=== PATIENT | female | born 1955 | race Caucasian/White ===

== ENCOUNTER 2018-02-17 13:45 | Emergency (ER) | payer BC ==
[~2018-02-17] VITALS: Ht 152.4 cm; Wt 61.4 kg
[2018-02-17 13:50] VITALS: TEMP 97
[2018-02-17 15:47] LABS: COLLECTION METHOD CLEAN CATCH
[2018-02-17 15:55] LABS: BASO # 0.1 (0.0-0.2); BASO % 0.9 % (0.0-2.0); EOS # 0.1 (0.0-0.7); EOS % 0.8 % (0-4.0); GRAN # 9.3 (1.4-6.5); GRAN % 80.9 % (42.2-75.2); HEMATOCRIT 46.3 % (37.0-47.0); HEMOGLOBIN 16.3 g/dl (12.5-16.0); LYMPH # 1.1 (1.2-3.4); LYMPH % 9.9 % (20.0-51.0); MEAN CELL VOLUME 92 fl (80.0-100.0); MEAN CORPUSCULAR HEMOGLOBIN 32 pg (27.0-31.0); MEAN CORPUSCULAR HGB CONC 35 g/dl (33.0-37.0); MEAN PLATELET VOLUME 9.6 fl (7.4-10.4); MONO # 0.8 (0.1-0.6); MONO % 6.9 % (1.7-9.3); PLATELET COUNT 278 K/mm3 (130-400); RED BLOOD COUNT 5.05 M/mm3 (4.10-5.30); REDCELL DISTRIBUTION WIDTH-CV 12.3 % (11.5-14.5)
[2018-02-17 15:57] LABS: PH 7 (5-8); SQUAMOUS EPITHELIAL 0-2 /hpf; URINE APPEARANCE Clear; URINE BACTERIA None Seen /hpf; URINE BILIRUBIN Negative (NEGATIVE); URINE BLOOD Negative (NEGATIVE); URINE COLOR Yellow; URINE GLUCOSE Negative (NEGATIVE); URINE KETONE Negative (NEGATIVE); URINE LEUKOCYTE ESTERASE Negative (NEGATIVE); URINE NITRATE Negative (NEGATIVE); URINE PROTEIN(semi-quant) 3+ (NEGATIVE); URINE UROBILINOGEN Negative (NEGATIVE)
[2018-02-17 16:07] LABS: ALANINE AMINOTRANSFERASE 39 U/L (9-52); ALBUMIN 3.2 gm/dL (3.5-5.0); ALKALINE PHOSPHATASE 112 U/L (50-136); ANION GAP 3 mmol/L (7-16); AST,SGOT 31 U/L (15-37); BILIRUBIN,TOTAL 0.4 mg/dL (0.0-1.0); BLOOD UREA NITROGEN 15 mg/dL (7-17); CARBON DIOXIDE 30 mmol/L (22-30); CHLORIDE 97 mmol/L (98-107); CREATININE, serum 0.77 mg/dL (0.52-1.25); GLUCOSE 120 mg/dL (74-106); LIPASE 107 U/L (23-300); POTASSIUM 4.2 mmol/L (3.4-5.0); SODIUM 130 mmol/L (137-145); TOTAL PROTEIN 6.3 gm/dL (6.4-8.2)
[2018-02-17 16:08] LABS: C-REACTIVE PROTEIN < 0.5 mg/dL (0.0-0.9)
[2018-02-17 16:18] LABS: TROPONIN-I < 0.012 ng/mL (0.000-0.034)
[2018-02-17] MEDS ORDERED: MOBIC15 MG PO (17:32)
[2018-02-17] MEDS ORDERED: COZAAR100 MG PO (17:33)
[2018-02-17] MEDS ORDERED: CYMBALTA 60MG60 MG PO (17:35)
[2018-02-17] MEDS ORDERED: MAXZIDE-25MG TA1 TAB PO (17:36)
[2018-02-17] MEDS ORDERED: LIPITOR 80MG80 MG PO (17:36)
[2018-02-17] MEDS ORDERED: ZOFRAN 4MG T4 MG/TAB PO (18:03)
[2018-02-17] MEDS ORDERED: PEPCID 20MG TAB20 MG PO (18:03)
[2018-02-17] MEDS ORDERED: NORCO 325 MG-51 TAB PO (18:11)
[2018-02-17 18:14] VITALS: BP 173/88; PULSE 82
== END 2018-02-17 18:31 | disposition home or self-care (01) ==
LOC: COL.ER 13:45
PROVIDERS: Emergency Medicine
DX: R10.12 Left upper quadrant pain (principal); R10.13 Epigastric pain; R19.7 Diarrhea, unspecified; R11.2 Nausea with vomiting, unspecified; I10 Essential (primary) hypertension; E78.5 Hyperlipidemia, unspecified; Z90.710 Acquired absence of both cervix and uterus; Z98.890 Other specified postprocedural states; F17.210 Nicotine dependence, cigarettes, uncomplicated
CPT/HCPCS: J2405; J3010; J7030; Q9967

== ENCOUNTER 2018-06-26 09:40 | Day surgery (SDC) | payer BC ==
[~2018-06-26] VITALS: Ht 152.4 cm; Wt 61.1 kg
[~2018-06-26 09:40] MED LIST: COZAAR100 MG PO; CYMBALTA 60MG60 MG PO; LIPITOR 80MG80 MG PO; MAXZIDE-25MG TA1 TAB PO; MOBIC15 MG PO; NORCO 325 MG-51 TAB PO; PEPCID 20MG TAB20 MG PO; ZOFRAN 4MG T4 MG/TAB PO
[2018-06-26 10:12] VITALS: BP 137/84; PULSE 77; TEMP 98.1
[2018-06-26] MEDS ORDERED: HCTZ 25MG TAB25 MG PO (10:12)
[2018-06-26 12:25] VITALS: BP 147/70; PULSE 80; TEMP 97.6
[2018-06-26 12:40] VITALS: BP 152/83; PULSE 77
[2018-06-26 12:55] VITALS: BP 160/84; PULSE 75
== END 2018-06-26 13:15 | disposition home or self-care (01) ==
LOC: SDCO 09:40
DX: R19.7 Diarrhea, unspecified (principal); R93.3 Abnormal findings on diagnostic imaging of other parts of digestive tract; K21.0 Gastro-esophageal reflux disease with esophagitis; F32.9 Major depressive disorder, single episode, unspecified; E78.00 Pure hypercholesterolemia, unspecified; R18.8 Other ascites; K81.9 Cholecystitis, unspecified; Z88.5 Allergy status to narcotic agent; Z90.710 Acquired absence of both cervix and uterus
CPT/HCPCS: J2704; J7030

== ENCOUNTER → 2018-07-16 | Outpatient (CLI) | payer BC ==
[~2018-07-16] VITALS: Ht 152.4 cm; Wt 67.7 kg
[~2018-07-16] MED LIST changes: +HCTZ 25MG TAB25 MG PO; +PRIL40 PO
[2018-07-16 11:59] VITALS: BP 180/80; PULSE 76
== END ==
LOC: COL.RAD 07-13 11:45
DX: R10.9 Unspecified abdominal pain (principal); R35.0 Frequency of micturition; R53.83 Other fatigue

== ENCOUNTER 2018-08-31 13:40 | Inpatient (IN) | payer BC ==
[~2018-08-31] VITALS: Ht 152.4 cm; Wt 69.2 kg
[2018-08-31 13:50] VITALS: BP 174/86; PULSE 96; TEMP 98.1
--- NOTE | 2018-08-31 14:18 | NUR ---
Pt arrives to medical unit, ambulates into rm 309 with steady gait, A&O x 4. Breath sounds with expiratory wheezes in upper lobes bilat, lower lung lobes clear but diminished. BS active x 4, abd distended but soft to palpation. POC reviewed with pt and pt's family. No further needs reported. Call light in reach.
[2018-08-31] MEDS ORDERED: LASIX 40MG TABL40 MG PO (14:29)
[2018-08-31] MEDS ORDERED: SYNTHROID0.075 MG/T PO (14:33)
[2018-08-31] MEDS ORDERED: LASIX 20MG TABL20 MG PO (14:34)
[2018-08-31] MEDS ORDERED: MICRO-K 10 EXT10 MEQ PO (14:34)
[2018-08-31] MEDS ORDERED: NORVASC 10MG10 MG PO (14:35)
[2018-08-31 16:25] LABS: BASO # 0.1 (0.0-0.2); BASO % 1.3 % (0.0-2.0); EOS % 0.4 % (0-4.0); GRAN # 5.7 (1.4-6.5); GRAN % 76.8 % (42.2-75.2); HEMOGLOBIN 12.7 g/dl (12.5-16.0); LYMPH # 0.7 (1.2-3.4); LYMPH % 9.7 % (20.0-51.0); MEAN CELL VOLUME 89 fl (80.0-100.0); MEAN CORPUSCULAR HEMOGLOBIN 30 pg (27.0-31.0); MEAN CORPUSCULAR HGB CONC 33 g/dl (33.0-37.0); MEAN PLATELET VOLUME 8.7 fl (7.4-10.4); MONO # 0.8 (0.1-0.6); MONO % 11.3 % (1.7-9.3); PLATELET COUNT 375 K/mm3 (130-400); RED BLOOD COUNT 4.25 M/mm3 (4.10-5.30); REDCELL DISTRIBUTION WIDTH-CV 13.7 % (11.5-14.5)
[2018-08-31 16:29] VITALS: BP 173/78; PULSE 89; TEMP 98.4
[2018-08-31 16:35] LABS: CALCIUM 8.3 mg/dL (8.4-10.2); CREATININE, serum 1.88 mg/dL (0.52-1.25); POTASSIUM 3.1 mmol/L (3.4-5.0)
--- NOTE | 2018-08-31 17:44 | NUR ---
[place] catheter insertion attempted by this nurse with 16 Fr catheter but meeting resistance on insertion. Pt reports needing to void, gets up to bathroom. Second nurse notified to attempt insertion.
[2018-08-31 19:17] VITALS: BP 154/69; PULSE 100; TEMP 99
--- NOTE | 2018-08-31 20:52 | NUR ---
Patient resting in bed, denies pain. Lasix drip currently infusing, indwelling walker catheter in place, diuresing beginning to occur. Assessment completed, VSS.
[2018-08-31 22:32] VITALS: BP 148/61; PULSE 95; TEMP 99
[2018-08-31 23:49] LABS: COLLECTION METHOD CLEAN CATCH
[2018-09-01] VITALS (7 sets, daily range): BP systolic 124–157; BP diastolic 61–79; PULSE 88–99; TEMP 97.9–100.2
[2018-09-01] LABS: AMORPHOUS CRYSTAL Present /uL; PH 5 (5-8); SQUAMOUS EPITHELIAL 0-2 /hpf; URINE APPEARANCE Clear; URINE BACTERIA Rare /hpf; URINE BILIRUBIN Negative (NEGATIVE); URINE BLOOD 1+ (NEGATIVE); URINE COLOR Straw; URINE GLUCOSE 1+ (NEGATIVE); URINE KETONE Negative (NEGATIVE); URINE LEUKOCYTE ESTERASE Negative (NEGATIVE); URINE NITRATE Negative (NEGATIVE); URINE PROTEIN(semi-quant) 2+ (NEGATIVE); URINE UROBILINOGEN Negative (NEGATIVE)
[2018-09-01 00:07] LABS: URINE PROTEIN:CREAT RATIO 16.2 (0.00-0.14)
--- NOTE | 2018-09-01 05:08 | NUR ---
Patient slept most of the night. On lasix drip, and walker is in. Diuresing, have about 140 mls/hr output. Denies pain. No other needs at thist michael.
[2018-09-01 06:40] LABS: BASO # 0.1 (0.0-0.2); BASO % 1.1 % (0.0-2.0); EOS % 0.7 % (0-4.0); GRAN # 3.3 (1.4-6.5); GRAN % 61.1 % (42.2-75.2); HEMOGLOBIN 11.3 g/dl (12.5-16.0); LYMPH % 18.9 % (20.0-51.0); MEAN CELL VOLUME 90 fl (80.0-100.0); MEAN CORPUSCULAR HEMOGLOBIN 30 pg (27.0-31.0); MEAN CORPUSCULAR HGB CONC 33 g/dl (33.0-37.0); MEAN PLATELET VOLUME 8.9 fl (7.4-10.4); MONO % 17.8 % (1.7-9.3); PLATELET COUNT 353 K/mm3 (130-400); RED BLOOD COUNT 3.76 M/mm3 (4.10-5.30); REDCELL DISTRIBUTION WIDTH-CV 13.7 % (11.5-14.5)
[2018-09-01 06:41] LABS: HEMATOCRIT 33.8 % (37.0-47.0)
[2018-09-01 06:55] LABS: CALCIUM 7.7 mg/dL (8.4-10.2); CREATININE, serum 1.87 mg/dL (0.52-1.25)
[2018-09-01 06:58] LABS: POTASSIUM 2.9 mmol/L (3.4-5.0)
--- NOTE | 2018-09-01 09:18 | NUR ---
Alert and oriented x 4 and able to make needs known. Denies having pain and discomfort. Able to ambualte to and from bathroom this morning with one assist. Patient had medium sized bowel movement. Continues on IV Lasix. 2+ edmea to BUE, and 3+ to BLE. Pedal pulses are present and equal bilaterally. Denies numbness, pain, and discomfort to BLE. Cap refill < 3 sec on finger and toes. BLE are without redness, warmth, and drainage. Indwelling walker catheter is patent, and draining clear yellow urine via dependent drainage. Sitting up in bed at this time watching TV. Voices no needs.
--- NOTE | 2018-09-01 10:34 | NUR ---
First visit from the school cleaner. No needs right now.
--- NOTE | 2018-09-01 18:37 | NUR ---
Patient educated on renal biopsy scheduled for tomorrow. Voices no concerns at this time. Educated on being NPO after midnight. Voices no needs at this time.
[2018-09-01 20:32] LABS: CALCIUM 7.5 mg/dL (8.4-10.2); CREATININE, serum 1.81 mg/dL (0.52-1.25); POTASSIUM 3.1 mmol/L (3.4-5.0)
--- NOTE | 2018-09-01 21:05 | NUR ---
Patient resting in bed. Per GLASS CUT OFF SUPERVISOR patient had temp of 100.2. This nurse went into room 45 minutes later, rechecked temperature and it was at 98.2. Denies pain. Assessment completed. Lasix drip currently infusing, walker catheter in. Strict I/O's. Evening medications administered. No further needs at this time.
[2018-09-02] VITALS (15 sets, daily range): BP systolic 125–174; BP diastolic 69–100; PULSE 82–94; TEMP 97.4–98.4
--- NOTE | 2018-09-02 05:30 | NUR ---
Patient slept most of the night, no complaints of pain, lasix gtt still infusing, walker catheter in place. VSS.
--- NOTE | 2018-09-02 06:12 | NUR ---
Average UOP 100-150 mls/hr.
[2018-09-02 07:55] LABS: BASO # 0.1 (0.0-0.2); EOS % 0.6 % (0-4.0); GRAN % 58.3 % (42.2-75.2); LYMPH # 1.2 (1.2-3.4); LYMPH % 22.6 % (20.0-51.0); MEAN CELL VOLUME 89 fl (80.0-100.0); MEAN CORPUSCULAR HEMOGLOBIN 30 pg (27.0-31.0); MEAN CORPUSCULAR HGB CONC 34 g/dl (33.0-37.0); MEAN PLATELET VOLUME 9.2 fl (7.4-10.4); MONO # 0.9 (0.1-0.6); MONO % 17.1 % (1.7-9.3); PLATELET COUNT 318 K/mm3 (130-400); RED BLOOD COUNT 3.66 M/mm3 (4.10-5.30); REDCELL DISTRIBUTION WIDTH-CV 13.7 % (11.5-14.5)
[2018-09-02 07:57] LABS: HEMATOCRIT 32.4 % (37.0-47.0)
[2018-09-02 08:07] LABS: CALCIUM 7.2 mg/dL (8.4-10.2); CREATININE, serum 1.83 mg/dL (0.52-1.25)
--- NOTE | 2018-09-02 09:22 | NUR ---
Alert and oriented and able to make needs known. Denies having pain and discomfort. Reviewed renal biopsy with patient. Voices understanding of procedure and signed consent. Voices no questions or concerns at this time. Given medications with sips of water this morning, otherwise remains NPO for procedure. Indwelling walker catheter remains patent, and draining clear yellow urine via dependent drainage. Has an occaional moist cough. Unable to observe any sputum. Lungs remain clear at this time. Denies having shortness of breath. Called radiology to confirm procedure time-set for 0950 at this time.
--- NOTE | 2018-09-02 10:10 | NUR ---
Pt wheeled down to CT for biopsy at this time.
--- NOTE | 2018-09-02 10:56 | NUR ---
Patient arrived at 1040 from radiology. Bandaid to right flank is clean, dry, and intact. Denies having pain and discomfort. Site is without redness, warmth, and swelling.
--- NOTE | 2018-09-02 11:01 | NUR ---
PT IS DOING WELL. HOLDING STILL AND FOLLOWING DIRECTIONS.
--- NOTE | 2018-09-02 11:01 | NUR ---
PT ON THE TABLE. MONITORING EQUIPMENT IN PLACE. INT PATENT AND FLUSHED WITH 10 CC NS.
--- NOTE | 2018-09-02 11:02 | NUR ---
PT IS DOING WELL. NO PAIN.
--- NOTE | 2018-09-02 11:03 | NUR ---
PROCEDURE COMPLETED. SPSECIMENS WERE GOOD. PT CLEANED AND EQUIPMENT REMOVED. PT ASSISTED TO TRANSFER TO WHEELCHAIR. PT TAKEN UPSTAIRS TO ROOM BY TECH. NURSE CALLED A FEW MINUTES LATER AND REPORT WAS GIVEN.
--- NOTE | 2018-09-02 13:15 | NUR ---
Continues to be on bedrest. Urine specimens being collected every two hours for Dr. Vieira at this time, via indwelling walker catheter. Denies having pain and discomfort. Bandaid to right flank area continues to be clean, dry, and intact.
[2018-09-02 17:59] LABS: CALCIUM 7.6 mg/dL (8.4-10.2); CREATININE, serum 1.83 mg/dL (0.52-1.25); MAGNESIUM 1.8 mg/dL (1.6-2.3); POTASSIUM 3.7 mmol/L (3.4-5.0)
--- NOTE | 2018-09-02 18:17 | NUR ---
Denies having pain and discomfort. Continueing to monitor urine output, and to collect samples per orders about every 2-[address] Vieira to look at when he comes.
--- NOTE | 2018-09-02 19:40 | NUR ---
Patient resting in bed with family at bedside. Assessment completed, denies pain, VSS. Strict I/O"s recorded, racking urine sample in bathroom until Dr. Alvarado sees patient.
[2018-09-03 00:19] VITALS: BP 141/69; PULSE 87; TEMP 98.3
[2018-09-03 04:09] VITALS: BP 141/70; PULSE 83; TEMP 98.1
--- NOTE | 2018-09-03 05:19 | NUR ---
Patient slept most of the night, VSS. Monitoring urine output from walker, sample taken every 2-3 hours and being stored in bathroom. No complaints of pain. Lasix gtt at 10 mls/hr.
[2018-09-03 06:16] LABS: GRAN # 4.4 (1.4-6.5); GRAN % 80.3 % (42.2-75.2); HEMOGLOBIN 11.5 g/dl (12.5-16.0); LYMPH # 0.9 (1.2-3.4); LYMPH % 15.6 % (20.0-51.0); MEAN CELL VOLUME 88 fl (80.0-100.0); MEAN CORPUSCULAR HEMOGLOBIN 30 pg (27.0-31.0); MEAN CORPUSCULAR HGB CONC 35 g/dl (33.0-37.0); MEAN PLATELET VOLUME 9.2 fl (7.4-10.4); MONO # 0.2 (0.1-0.6); MONO % 3.4 % (1.7-9.3); PLATELET COUNT 329 K/mm3 (130-400); RED BLOOD COUNT 3.79 M/mm3 (4.10-5.30); REDCELL DISTRIBUTION WIDTH-CV 13.2 % (11.5-14.5)
[2018-09-03 06:20] LABS: HEMATOCRIT 33.2 % (37.0-47.0)
[2018-09-03 06:30] LABS: CALCIUM 7.2 mg/dL (8.4-10.2); CREATININE, serum 2.06 mg/dL (0.52-1.25); POTASSIUM 3.8 mmol/L (3.4-5.0)
[2018-09-03 06:56] LABS: TSH w REFLEX 4.39 uIU/mL (0.465-4.680)
[2018-09-03 07:25] VITALS: BP 149/75; PULSE 88; TEMP 98
--- NOTE | 2018-09-03 09:56 | NUR ---
Patient assessed. 1+ edema to BUE and BLE. Weight was 166 this morning, down from 170 yesterday. Continues on IV Lasix per orders. Denies having pain and discomfort. Urine continues to be collected about every 2-3 hours.
[2018-09-03 12:36] VITALS: BP 154/73; PULSE 91; TEMP 98
--- NOTE | 2018-09-03 14:24 | NUR ---
Called and spoke wiht Dr. Che regarding patient's low urine output, even after initiating new orders from earlier today. Urine output has been 125ml since 0800. Indwelling walker cathter continues to drain clear, yellow urine, with two small blood clots noted. MD requested bladder scan to be performed to ensure catheter is draining properly. No new orders at this time, continue with current medication regimen. Bladder scan completed, with no significant findings.
--- NOTE | 2018-09-03 15:27 | NUR ---
SW and SW student met with patient to discuss discharge planning. Patient lives in [place] with her River and is independent in her adls. Patients PCP is Juana Moreno and she obtains her medications at [facility] in [place]. Patient does not know if she has a DPOA but reports she will ask her . Patient will dc home with her and no unmet discharge needs.
[2018-09-03 16:32] VITALS: BP 102/57; PULSE 58; TEMP 97.8
[2018-09-03 19:45] VITALS: BP 148/77; PULSE 87; TEMP 97.8
--- NOTE | 2018-09-03 22:00 | NUR ---
Completed assessment and medication administration with PT; PT tolerated medication well; Fluid restriction 2L per day; IV moved to Rt Hand d/t leaking of fluid; PT continues to be FSBS ACHS with SS Novolog; Continues to be SBA with walker catheter in place draining well; Renal BX results pending; PT continues to have generalized edema with Lasik therapy ordered. PT denied further complaints at time of exit; Call light placed within reach; Will continue to montior. CDA
[2018-09-04] VITALS: BP 145/73; PULSE 76
[2018-09-04 06:13] LABS: BASO % 0.1 % (0.0-2.0); GRAN # 15.3 (1.4-6.5); GRAN % 88.6 % (42.2-75.2); HEMOGLOBIN 11.4 g/dl (12.5-16.0); LYMPH # 1.1 (1.2-3.4); LYMPH % 6.2 % (20.0-51.0); MEAN CELL VOLUME 88 fl (80.0-100.0); MEAN CORPUSCULAR HEMOGLOBIN 30 pg (27.0-31.0); MEAN CORPUSCULAR HGB CONC 34 g/dl (33.0-37.0); MEAN PLATELET VOLUME 9.1 fl (7.4-10.4); MONO # 0.8 (0.1-0.6); MONO % 4.5 % (1.7-9.3); PLATELET COUNT 356 K/mm3 (130-400); RED BLOOD COUNT 3.83 M/mm3 (4.10-5.30); REDCELL DISTRIBUTION WIDTH-CV 13.2 % (11.5-14.5)
[2018-09-04 06:17] LABS: HEMATOCRIT 33.7 % (37.0-47.0)
[2018-09-04 06:24] LABS: CALCIUM 7.3 mg/dL (8.4-10.2); CREATININE, serum 2.22 mg/dL (0.52-1.25)
--- NOTE | 2018-09-04 06:55 | NUR ---
PT tolerated medications and treatments well. New IV placed in RT hand by house nurse; No other significant changes during overnight shift. Call light placed within reach of PT; No further needs at time of exit; Report given to ANITRA Huggins. CDA
[2018-09-04 07:46] VITALS: BP 164/80; PULSE 90; TEMP 97.8
--- NOTE | 2018-09-04 08:45 | NUR ---
Patient is alert and oriented, sitting up in the chair. IV flushes well, lasix running per orders. Fluid restriction followed. Catheter draining adequately, closely monitoring output. Patient reports SOB with ambulation, VSS. Call light within reach and will continue to monitor.
[2018-09-04 12:10] VITALS: BP 150/71; PULSE 84; TEMP 97.6
[2018-09-04 16:20] VITALS: BP 151/80; PULSE 87; TEMP 98
--- NOTE | 2018-09-04 18:23 | NUR ---
Patient has been up in the chair and laying in bed throughout the day. Lasix drip continues to run per orders. Bilateral lower extremity swelling and right arm extremity swelling observed. Patient intake 1000ml throughout shift. Output is adequate. VSS. Call light within reach and will give report to customer data technician RN.
[2018-09-04 19:05] VITALS: BP 154/75; PULSE 86; TEMP 98.1
[2018-09-04 23:37] VITALS: BP 149/72; PULSE 83; TEMP 98.5
[2018-09-04 23:52] LABS: C-ANCA 46 U/mL (0-99)
[2018-09-05 03:26] VITALS: BP 129/70; PULSE 75; TEMP 98.1
[2018-09-05 08:00] VITALS: BP 139/71; PULSE 74; TEMP 97.7
--- NOTE | 2018-09-05 08:08 | NUR ---
PT HAD UNEVENTFUL NOC. PLEASENT AND COOPERATIVE WITH CARES. NO C/O PAIN OR N/V/D. NO ISSUES OR CONERNS VOICED
[2018-09-05 08:22] LABS: BASO % 0.1 % (0.0-2.0); EOS % 0.2 % (0-4.0); GRAN # 8.9 (1.4-6.5); GRAN % 69.3 % (42.2-75.2); HEMATOCRIT 37.4 % (37.0-47.0); HEMOGLOBIN 12.6 g/dl (12.5-16.0); LYMPH # 2.5 (1.2-3.4); LYMPH % 19.3 % (20.0-51.0); MEAN CELL VOLUME 89 fl (80.0-100.0); MEAN CORPUSCULAR HEMOGLOBIN 30 pg (27.0-31.0); MEAN CORPUSCULAR HGB CONC 34 g/dl (33.0-37.0); MEAN PLATELET VOLUME 9.4 fl (7.4-10.4); MONO # 1.4 (0.1-0.6); MONO % 10.6 % (1.7-9.3); PLATELET COUNT 400 K/mm3 (130-400); REDCELL DISTRIBUTION WIDTH-CV 13.8 % (11.5-14.5)
[2018-09-05 08:35] LABS: CALCIUM 7.6 mg/dL (8.4-10.2); CREATININE, serum 2.23 mg/dL (0.52-1.25); POTASSIUM 4.1 mmol/L (3.4-5.0)
--- NOTE | 2018-09-05 09:30 | NUR ---
PATIENT ASSESSMENT COMPLETED. SHE DENIES ANY NEEDS. BREAKFAST WAS PROVIDED AND HAS ARRIVED AT BEDSIDE
[2018-09-05 12:01] VITALS: BP 149/75; PULSE 77; TEMP 97.7
--- NOTE | 2018-09-05 14:00 | NUR ---
UA COLLECTED. PATIENT IS UP TO THE RESTROOM WITHOUT DIFFICULTY OR COMPLAINTS. NO OTHER NEEDS EXPRESSED
[2018-09-05 15:59] LABS: URINE PROTEIN:CREAT RATIO 12.55 (0.00-0.14)
[2018-09-05 16:28] VITALS: BP 143/82; PULSE 94; TEMP 98.2
--- NOTE | 2018-09-05 18:05 | NUR ---
PATIENT UP IN BED VISITING WITH VISITORS. DENIES NEEDS
[2018-09-05 19:19] VITALS: BP 147/84; PULSE 86; TEMP 97.4
[2018-09-05 23:54] VITALS: BP 123/70; PULSE 82; TEMP 97.9
[2018-09-06 03:59] VITALS: BP 148/74; PULSE 72
--- NOTE | 2018-09-06 06:04 | NUR ---
PT tolerated medications and IV Lasix well throughout the night; Output has increased and weight is down from yesterday; Increase in fluid volume output reported to Dr. Vieira per order; TORB per Dariel - "Cancel phone notification order, there is no need, no changes." PT tolerating fluid loss well; Denies acute changes to balance at time of assessment; PT denies further needs at time of exit; Call light placed within reach; Pending report for dayshift. CDA
[2018-09-06 08:02] VITALS: BP 177/85; PULSE 76; TEMP 98.1
--- NOTE | 2018-09-06 08:30 | NUR ---
PATIENT ASSESSMENT COMPLETED. SHE FEELS LIKE SHE IS A LITTLE LESS SWOLLEN AROUND THE TORSO. LEGS ARE LESS SWOLLEN THAN YESTERDAY. SHE DENIES ANY PAIN OR NEEDS AT THIS TIME. BREAKFAST HAS BEEN ORDERED
[2018-09-06 08:56] LABS: BASO % 0.1 % (0.0-2.0); EOS % 0.4 % (0-4.0); GRAN # 6.9 (1.4-6.5); GRAN % 62.9 % (42.2-75.2); LYMPH # 2.8 (1.2-3.4); LYMPH % 25.4 % (20.0-51.0); MEAN CELL VOLUME 89 fl (80.0-100.0); MEAN CORPUSCULAR HEMOGLOBIN 29 pg (27.0-31.0); MEAN CORPUSCULAR HGB CONC 33 g/dl (33.0-37.0); MEAN PLATELET VOLUME 9.4 fl (7.4-10.4); MONO # 1.2 (0.1-0.6); MONO % 10.7 % (1.7-9.3); PLATELET COUNT 361 K/mm3 (130-400); RED BLOOD COUNT 4.08 M/mm3 (4.10-5.30); REDCELL DISTRIBUTION WIDTH-CV 13.6 % (11.5-14.5)
[2018-09-06 08:57] LABS: HEMATOCRIT 36.1 % (37.0-47.0)
[2018-09-06 09:03] LABS: CALCIUM 7.8 mg/dL (8.4-10.2); CREATININE, serum 2.27 mg/dL (0.52-1.25); POTASSIUM 3.9 mmol/L (3.4-5.0)
[2018-09-06 11:18] VITALS: BP 153/74; PULSE 80; TEMP 98.2
[2018-09-06] MEDS ORDERED: COZAAR 50MG50 MG/TAB PO (12:07)
[2018-09-06] MEDS ORDERED: PREDNISONE20 MG PO (12:09)
[2018-09-06] MEDS ORDERED: MICRO-K 10 EXT10 MEQ PO (12:10)
[2018-09-06] MEDS ORDERED: MAG-OX 400400 MG/TAB PO (12:11)
[2018-09-06] MEDS ORDERED: COUMADIN 1MG1 MG/TAB PO (12:16)
--- NOTE | 2018-09-06 13:15 | NUR ---
PATIENT DISCHARGE INSTRUCTIONS REVIEWED WITH PATIENT AND . THEY DECLINE FURTHER QUESTIONS
--- NOTE | 2018-09-06 13:25 | NUR ---
PATIENT DISCHARGED TO HOME WITH BELONGINGS. SHE DENIES ANY OTHER BELONGINGS THAT ARE LOCKED UP. NEW SCRIPTS HAVE BEEN SENT TO [facility].
== END 2018-09-06 13:30 | disposition home or self-care (01) | DRG 700 ==
LOC: MEDICAL 13:40
PROVIDERS: Internal Medicine Nephrology; ADMIT Internal Medicine
PROC: 0TB03ZX Excision of Right Kidney, Percutaneous Approach, Diagnostic (ICD-10-PCS; principal; 2018-09-02)
DX: N04.1 Nephrotic syndrome with focal and segmental glomerular lesions (principal); N17.0 Acute kidney failure with tubular necrosis; I12.9 Hypertensive chronic kidney disease with stage 1 through stage 4 chronic kidney disease, or unspecified chronic kidney disease; N18.3 Chronic kidney disease, stage 3 (moderate); F17.210 Nicotine dependence, cigarettes, uncomplicated; E66.9 Obesity, unspecified; Z68.33 Body mass index [BMI] 33.0-33.9, adult; E03.9 Hypothyroidism, unspecified; E87.6 Hypokalemia; R80.8 Other proteinuria
CPT/HCPCS: J1644; J1815; J1940; J2930; J7060; J7512

== ENCOUNTER 2019-02-11 11:21 | Emergency (ER) | payer BC ==
[~2019-02-11] VITALS: Ht 152.4 cm; Wt 54.5 kg
[~2019-02-11 11:21] MED LIST changes: +COUMADIN 1MG1 MG/TAB PO; +COZAAR 50MG50 MG/TAB PO; +LASIX 20MG TABL20 MG PO; +LASIX 40MG TABL40 MG PO; +MAG-OX 400400 MG/TAB PO; +MICRO-K 10 EXT10 MEQ PO; +NORVASC 10MG10 MG PO; +PREDNISONE20 MG PO; +SYNTHROID0.075 MG/T PO
[2019-02-11 11:27] VITALS: TEMP 96.5
[2019-02-11 11:43] LABS: COLLECTION METHOD CLEAN CATCH
[2019-02-11 11:53] LABS: MUCOUS Present /lpf; PH 6 (5-8); SQUAMOUS EPITHELIAL 0-2 /hpf; URINE APPEARANCE Clear; URINE BACTERIA Rare /hpf; URINE BILIRUBIN Negative (NEGATIVE); URINE BLOOD Negative (NEGATIVE); URINE COLOR Yellow; URINE GLUCOSE 1+ (NEGATIVE); URINE KETONE Negative (NEGATIVE); URINE LEUKOCYTE ESTERASE Negative (NEGATIVE); URINE NITRATE Negative (NEGATIVE); URINE PROTEIN(semi-quant) 3+ (NEGATIVE); URINE UROBILINOGEN Negative (NEGATIVE)
[2019-02-11 12:09] LABS: BASO # 0.1 (0.0-0.2); BASO % 0.4 % (0.0-2.0); EOS % 0.1 % (0-4.0); GRAN # 12.5 (1.4-6.5); GRAN % 80.2 % (42.2-75.2); LYMPH # 1.6 (1.2-3.4); LYMPH % 10.5 % (20.0-51.0); MEAN CELL VOLUME 93 fl (80.0-100.0); MEAN CORPUSCULAR HEMOGLOBIN 31 pg (27.0-31.0); MEAN CORPUSCULAR HGB CONC 33 g/dl (33.0-37.0); MEAN PLATELET VOLUME 9.7 fl (7.4-10.4); MONO # 1.1 (0.1-0.6); MONO % 7.1 % (1.7-9.3); PLATELET COUNT 296 K/mm3 (130-400); RED BLOOD COUNT 4.84 M/mm3 (4.10-5.30); REDCELL DISTRIBUTION WIDTH-CV 14.6 % (11.5-14.5)
[2019-02-11 12:14] LABS: ALBUMIN 3.1 gm/dL (3.5-5.0); BILIRUBIN,TOTAL 0.6 mg/dL (0.0-1.0); CALCIUM 8.7 mg/dL (8.4-10.2); CREATININE, serum 1.11 (0.52-1.25); POTASSIUM 3.3 mmol/L (3.4-5.0); TOTAL PROTEIN 6.2 gm/dL (6.4-8.2)
[2019-02-11] MEDS ORDERED: AMOXICILLIN 8751 TAB PO (14:10)
[2019-02-11 14:30] VITALS: BP 162/93; PULSE 85
== END 2019-02-11 14:30 | disposition home or self-care (01) ==
LOC: COL.ER 11:21
PROVIDERS: Emergency Medicine
DX: R10.32 Left lower quadrant pain (principal); R10.12 Left upper quadrant pain; I10 Essential (primary) hypertension; F17.210 Nicotine dependence, cigarettes, uncomplicated; Z90.49 Acquired absence of other specified parts of digestive tract; Z90.710 Acquired absence of both cervix and uterus; Z88.5 Allergy status to narcotic agent; Z79.01 Long term (current) use of anticoagulants
CPT/HCPCS: J1170; J2405; J7030; Q9967

== ENCOUNTER → 2019-06-16 | Outpatient (CLI) | payer BC ==
[~2019-06-16] MED LIST changes: +AMOXICILLIN 8751 TAB PO
== END ==
LOC: COL.RAD 06-15 11:00
DX: D47.2 Monoclonal gammopathy (principal); M47.813 Spondylosis without myelopathy or radiculopathy, cervicothoracic region; M47.815 Spondylosis without myelopathy or radiculopathy, thoracolumbar region; M19.011 Primary osteoarthritis, right shoulder; M16.0 Bilateral primary osteoarthritis of hip

== ENCOUNTER 2019-09-22 15:53 | Inpatient (IN) | payer BC ==
[~2019-09-22] VITALS: Ht 152.4 cm; Wt 59.3 kg
[2019-09-23] VITALS (91 sets, daily range): BP systolic 122–145; BP diastolic 48–85; PULSE 55–87; TEMP 97.7–97.8; O2SAT 85–97
[2019-09-23 09:35] LABS: BASO # 0.1 (0.0-0.2); BASO % 0.7 % (0.0-2.0); EOS # 0.2 (0.0-0.7); EOS % 1.6 % (0-4.0); GRAN # 8.9 (1.4-6.5); GRAN % 68.7 % (42.2-75.2); HEMATOCRIT 37.8 % (37.0-47.0); HEMOGLOBIN 12.1 g/dl (12.5-16.0); LYMPH # 2.3 (1.2-3.4); LYMPH % 17.6 % (20.0-51.0); MEAN CELL VOLUME 89 fl (80.0-100.0); MEAN CORPUSCULAR HEMOGLOBIN 29 pg (27.0-31.0); MEAN CORPUSCULAR HGB CONC 32 g/dl (33.0-37.0); MEAN PLATELET VOLUME 10.1 fl (7.4-10.4); MONO # 1.4 (0.1-0.6); MONO % 10.6 % (1.7-9.3); PLATELET COUNT 341 K/mm3 (130-400); RED BLOOD COUNT 4.24 M/mm3 (4.10-5.30); REDCELL DISTRIBUTION WIDTH-CV 14.6 % (11.5-14.5)
[2019-09-23 09:40] LABS: INR 0.8 (0.8-3.0); PROTHROMBIN TIME 9.6 SECONDS (9.7-12.8)
[2019-09-23 09:43] LABS: PARTIAL THROMBOPLASTIN TIME 29.6 SECONDS (26.0-37.0)
[2019-09-23 09:53] LABS: ALBUMIN 3.3 gm/dL (3.5-5.0); BILIRUBIN,TOTAL 0.3 mg/dL (0.0-1.0); CALCIUM 8.6 mg/dL (8.4-10.2); CREATININE, serum 3.41 (0.52-1.25); MAGNESIUM 2.8 mg/dL (1.6-2.3); PHOSPHOROUS 6.3 mg/dL (2.5-4.5); POTASSIUM 3.2 mmol/L (3.4-5.0); TOTAL PROTEIN 6.2 gm/dL (6.4-8.2)
--- NOTE | 2019-09-23 09:56 | NUR ---
ANODIZER student met with the patient and the patient's , River to complete initial intake. The patient lives in [place] with River. The patient denies DME usage and reports indepenence with ADLs. The patient's PCP is Dr. Ortiz and patient receives medications from [facility] in [place] with no difficulties. The patient does not have advanced directives in the EMR. The patient plans to return home at discharge with River. There are no additional needs at this time.
[2019-09-23] MEDS ORDERED: PREDNISONE 5MG5 MG PO (10:24)
[2019-09-23] MEDS ORDERED: PROGRAF 1MG1 MG PO (10:26)
[2019-09-23] MEDS ORDERED: ASPI325T6 PO (10:49)
[2019-09-23] MEDS ORDERED: ZAROXOLYN 2.52.5 MG PO (10:51)
[2019-09-23] MEDS ORDERED: COZAAR100 MG PO (11:00)
[2019-09-23] MEDS ORDERED: KLOR-CON M1010 MEQ PO (11:02)
[2019-09-23 11:42] LABS: CREATININE, serum 3.22 (0.52-1.25); FRACTIONAL EXCRETION OF NA+ 8.3 %
--- NOTE | 2019-09-23 21:00 | NUR ---
Assessment complete; VS stable. Denies any concerns at this time.
[2019-09-23 22:34] LABS: COLLECTION METHOD CLEAN CATCH
[2019-09-23 22:52] LABS: MUCOUS Present /lpf; PH 6 (5-8); SQUAMOUS EPITHELIAL None Seen /hpf; URINE APPEARANCE Clear; URINE BACTERIA None Seen /hpf; URINE BILIRUBIN Negative (NEGATIVE); URINE BLOOD Negative (NEGATIVE); URINE COLOR Straw; URINE GLUCOSE Negative (NEGATIVE); URINE KETONE Negative (NEGATIVE); URINE LEUKOCYTE ESTERASE Negative (NEGATIVE); URINE NITRATE Negative (NEGATIVE); URINE PROTEIN(semi-quant) 2+ (NEGATIVE); URINE UROBILINOGEN Negative (NEGATIVE); URINE WBC 0-2 /hpf
[2019-09-24] VITALS (489 sets, daily range): BP systolic 135–159; BP diastolic 74–92; PULSE 81–87; TEMP 98–99; O2SAT 87–99
--- NOTE | 2019-09-24 01:00 | NUR ---
Called to patient room to collect urine sample for 24 hr collection. No other concerns at this time. Call light within reach.
[2019-09-24 06:59] LABS: BASO # 0.1 (0.0-0.2); BASO % 0.6 % (0.0-2.0); EOS # 0.2 (0.0-0.7); EOS % 2.2 % (0-4.0); GRAN # 6.4 (1.4-6.5); GRAN % 64.6 % (42.2-75.2); LYMPH # 2.2 (1.2-3.4); LYMPH % 21.9 % (20.0-51.0); MEAN CELL VOLUME 89 fl (80.0-100.0); MEAN CORPUSCULAR HEMOGLOBIN 29 pg (27.0-31.0); MEAN CORPUSCULAR HGB CONC 33 g/dl (33.0-37.0); MEAN PLATELET VOLUME 9.9 fl (7.4-10.4); MONO % 10.1 % (1.7-9.3); PLATELET COUNT 327 K/mm3 (130-400); RED BLOOD COUNT 3.78 M/mm3 (4.10-5.30); REDCELL DISTRIBUTION WIDTH-CV 14.7 % (11.5-14.5)
[2019-09-24 07:01] LABS: HEMATOCRIT 33.5 % (37.0-47.0)
[2019-09-24 07:12] LABS: ALBUMIN 2.6 gm/dL (3.5-5.0); CALCIUM 7.7 mg/dL (8.4-10.2); CREATININE, serum 2.78 (0.52-1.25); PHOSPHOROUS 5.4 mg/dL (2.5-4.5); POTASSIUM 3.7 mmol/L (3.4-5.0)
--- NOTE | 2019-09-24 20:00 | NUR ---
Patient awake and oriented x4, she is resting in bed watching TV. No complaints of pain or any signs of distress. Vitals are WNL. Assessment complete with Lungs clear in upper lobes and diminished in bases. HR and rhythm regular with normal S1 and S2 heard. Bowel sounds active x4. Patient's peripheral pulses are palpable with +1 edema to the lower extremities and hands are also edematous. BUE have multiple briuses, no other skin issues noted. Patient has no further needs at this time. Will continue to monitor. Call light within reach.
[2019-09-24 20:36] LABS: CREATININE, serum 2.65 (0.52-1.25)
[2019-09-24 20:49] LABS: URINE CREATININE CLEARANCE 38.1 mL/min (88-128); URINE TOTAL VOLUME 2200 mL
[2019-09-25] VITALS: BP 142/79; PULSE 78; TEMP 98.5
[2019-09-25 03:58] VITALS: O2SAT 93
[2019-09-25 04:00] VITALS: BP 148/91; PULSE 82; TEMP 98.5
[2019-09-25 05:49] LABS: BASO # 0.1 (0.0-0.2); BASO % 0.6 % (0.0-2.0); EOS # 0.2 (0.0-0.7); EOS % 2.3 % (0-4.0); GRAN # 6.1 (1.4-6.5); GRAN % 63.1 % (42.2-75.2); HEMOGLOBIN 10.9 g/dl (12.5-16.0); LYMPH # 2.2 (1.2-3.4); LYMPH % 23.2 % (20.0-51.0); MEAN CELL VOLUME 89 fl (80.0-100.0); MEAN CORPUSCULAR HEMOGLOBIN 29 pg (27.0-31.0); MEAN CORPUSCULAR HGB CONC 32 g/dl (33.0-37.0); MEAN PLATELET VOLUME 9.6 fl (7.4-10.4); MONO % 10.2 % (1.7-9.3); PLATELET COUNT 290 K/mm3 (130-400); RED BLOOD COUNT 3.76 M/mm3 (4.10-5.30); REDCELL DISTRIBUTION WIDTH-CV 14.4 % (11.5-14.5)
[2019-09-25 05:51] LABS: HEMATOCRIT 33.6 % (37.0-47.0)
[2019-09-25 05:59] LABS: ALBUMIN 2.6 gm/dL (3.5-5.0); CALCIUM 8.1 mg/dL (8.4-10.2); CREATININE, serum 2.58 (0.52-1.25); PHOSPHOROUS 5.3 mg/dL (2.5-4.5); POTASSIUM 3.7 mmol/L (3.4-5.0)
--- NOTE | 2019-09-25 07:10 | NUR ---
Bedside report given to ANITAR Bernal
[2019-09-25 08:57] VITALS: BP 157/90; PULSE 80; TEMP 98.6
[2019-09-25 08:59] VITALS: O2SAT 97
[2019-09-25] MEDS ORDERED: LASIX 20MG TABL20 MG PO (10:19)
[2019-09-25] MEDS ORDERED: PRIL40 PO (10:22)
[2019-09-25] MEDS ORDERED: NORVASC 5MG5 MG/TAB PO (10:26)
[2019-09-25] MEDS ORDERED: COUMADIN 2MG2 MG/TAB PO (10:33)
[2019-09-25] MEDS ORDERED: FOSAMAX 35MG35 MG PO (10:35)
[2019-09-25] MEDS ORDERED: PREDNISONE20 MG PO (10:40)
[2019-09-25] MEDS ORDERED: PROGRAF 1MG1 MG PO (10:45)
== END 2019-09-25 11:59 | disposition home or self-care (01) | DRG 684 ==
LOC: ICU 09-23 08:09 → IMCU 09-23 15:50 → MEDICAL 09-23 16:50 → ICU 09-25 11:59
PROVIDERS: ADMIT Internal Medicine Nephrology
DX: N17.9 Acute kidney failure, unspecified (principal); E66.9 Obesity, unspecified; N18.3 Chronic kidney disease, stage 3 (moderate); I12.9 Hypertensive chronic kidney disease with stage 1 through stage 4 chronic kidney disease, or unspecified chronic kidney disease; K21.9 Gastro-esophageal reflux disease without esophagitis; R73.9 Hyperglycemia, unspecified; T50.2X5A Adverse effect of carbonic-anhydrase inhibitors, benzothiadiazides and other diuretics, initial encounter; E83.42 Hypomagnesemia; E78.5 Hyperlipidemia, unspecified; F17.210 Nicotine dependence, cigarettes, uncomplicated; Z79.82 Long term (current) use of aspirin; Z79.52 Long term (current) use of systemic steroids; Z68.25 Body mass index [BMI] 25.0-25.9, adult; Z90.710 Acquired absence of both cervix and uterus; Z88.5 Allergy status to narcotic agent
CPT/HCPCS: J3480; J7507; J7512

== ENCOUNTER 2020-01-14 23:54 | Inpatient (IN) | payer BC ==
[~2020-01-14] VITALS: Ht 152.4 cm; Wt 57.1 kg
[~2020-01-14 23:54] MED LIST changes: +ASPI325T6 PO; +COUMADIN 2MG2 MG/TAB PO; +FOSAMAX 35MG35 MG PO; +KLOR-CON M1010 MEQ PO; +NORVASC 5MG5 MG/TAB PO; +PREDNISONE 5MG5 MG PO; +PROGRAF 1MG1 MG PO; +ZAROXOLYN 2.52.5 MG PO
[2020-01-15 00:33] LABS: BASO # 0.1 (0.0-0.2); BASO % 0.4 % (0.0-2.0); EOS # 0.1 (0.0-0.7); EOS % 0.3 % (0-4.0); GRAN # 14.2 (1.4-6.5); GRAN % 77.7 % (42.2-75.2); HEMATOCRIT 42.8 % (37.0-47.0); HEMOGLOBIN 13.7 g/dl (12.5-16.0); INR 0.8 (0.8-3.0); LYMPH # 2.2 (1.2-3.4); MEAN CELL VOLUME 93 fl (80.0-100.0); MEAN CORPUSCULAR HEMOGLOBIN 30 pg (27.0-31.0); MEAN CORPUSCULAR HGB CONC 32 g/dl (33.0-37.0); MEAN PLATELET VOLUME 9.5 fl (7.4-10.4); MONO # 1.5 (0.1-0.6); PLATELET COUNT 303 K/mm3 (130-400); PROTHROMBIN TIME 8.9 SECONDS (9.7-12.8); REDCELL DISTRIBUTION WIDTH-CV 15.7 % (11.5-14.5)
[2020-01-15 00:35] LABS: PARTIAL THROMBOPLASTIN TIME 20.8 SECONDS (26.0-37.0)
[2020-01-15 00:41] LABS: ALANINE AMINOTRANSFERASE 30 U/L (4-34); ALBUMIN 3.4 gm/dL (3.5-5.0); ALKALINE PHOSPHATASE 118 U/L (50-136); ANION GAP 4 mmol/L (7-16); AST,SGOT 24 U/L (15-37); BILIRUBIN,TOTAL 0.5 mg/dL (0.0-1.0); BLOOD UREA NITROGEN 31 mg/dL (7-17); C-REACTIVE PROTEIN < 0.5 mg/dL (0.0-0.9); CALCIUM 8.7 mg/dL (8.4-10.2); CARBON DIOXIDE 26 mmol/L (22-30); CHLORIDE 106 mmol/L (98-107); CREATININE, serum 1.52 (0.52-1.25); GLUCOSE 188 mg/dL (74-106); LIPASE 170 U/L (23-300); MAGNESIUM 2.2 mg/dL (1.6-2.3); PHOSPHOROUS 3.9 mg/dL (2.5-4.5); POTASSIUM 4.2 mmol/L (3.4-5.0); SODIUM 137 mmol/L (137-145); TOTAL PROTEIN 6.5 gm/dL (6.4-8.2)
[2020-01-15 01:34] LABS: COLLECTION METHOD CLEAN CATCH
[2020-01-15 01:39] LABS: PH 7 (5-8); SQUAMOUS EPITHELIAL 0-2 /hpf; URINE APPEARANCE Clear; URINE BACTERIA None Seen /hpf; URINE BILIRUBIN Negative (NEGATIVE); URINE BLOOD Negative (NEGATIVE); URINE COLOR Yellow; URINE GLUCOSE 1+ (NEGATIVE); URINE KETONE Negative (NEGATIVE); URINE LEUKOCYTE ESTERASE Negative (NEGATIVE); URINE NITRATE Negative (NEGATIVE); URINE PROTEIN(semi-quant) 3+ (NEGATIVE); URINE RBC 0-2 /hpf; URINE UROBILINOGEN Negative (NEGATIVE)
[2020-01-15] MEDS ORDERED: PREDNISONE20 MG PO (02:03)
[2020-01-15] MEDS ORDERED: AMARYL 2MG T2 MG/TAB PO (02:05)
--- NOTE | 2020-01-15 02:46 | NUR ---
Received report from ANITRA Oscar ED
--- NOTE | 2020-01-15 03:05 | NUR ---
Pt arrived to medical unit room 315 via bed.
[2020-01-15 03:11] VITALS: BP 207/90; PULSE 88; TEMP 98.4
--- NOTE | 2020-01-15 04:06 | NUR ---
A/Ox4. Ambulatory to BR, independent. Pt a bit shakey but steady on feet d/t abdominal pain, vomiting. Rates abdominal pain 1-2/10 at rest. Pt had x1 emesis episode, PRN phernergan administered. LH IV intact, dressing CDI. Pt aware of prn nausea/vomiting and pain meds. Able to make needs known. Will monitor pt. Call light within reach.
[2020-01-15] MEDS ORDERED: MAG-OX 400400 MG/TAB PO (05:11)
--- NOTE | 2020-01-15 07:20 | NUR ---
report given to ANITRA Brannon.
[2020-01-15 08:54] VITALS: BP 163/83; PULSE 94; TEMP 98.5
--- NOTE | 2020-01-15 10:19 | NUR ---
Patient resting in bed. A&Ox3. VSS. IV CDI, fluids infusing. Denies pain and discomfort. Patient is just waiting on Dr Vieira to come see her and see what is going on. No further needs expressed from patient. Call light within reach
--- NOTE | 2020-01-15 10:21 | NUR ---
No reported nausea and vomitting. BP hypertensive, doctor aware. Call light within reach
[2020-01-15 10:55] VITALS: BP 152/78; PULSE 99; TEMP 99
--- NOTE | 2020-01-15 13:27 | NUR ---
SW met with patient about DC. Patient reports that she lives out of town. Patient reports that she obtains RX at [facility]. Patient reports that she has two specialist Dr. Vieira for Kidneys and Dr. Ortiz for PCP. Patient indicated that her supports her at home Wade Reeys at . Client shares that her care is good and that she does not have any additional concerns. Patient reports that she does not have home health and declined services. Will continue to follow for additional needs.
[2020-01-15 17:28] VITALS: BP 171/105; PULSE 89; TEMP 98.3
--- NOTE | 2020-01-15 18:25 | NUR ---
Patient has been resting most of the shift. Easily arousable. Denies pain and discomfort. No reported nausea or vomitting. VSS. BP hypertensive. Apresoline 25 mg PO given as needed. IV CDI, fluids infusing. Patient tolerating clear liquid diet. No further needs expressed from patient. Call light within reach
--- NOTE | 2020-01-15 20:00 | NUR ---
Received report from ANITRA Brannon. Pt sleeping uon entry, easily awakened to voice. A/Ox4. NAD. Denies any pain, nausea, or discomfort at this time. VIF infusing to LH, intact, dressing CDI. Meds adminsitered as ordered. Needs met at this time. Stool sample collected. Pt aware of PRN meds. Call light within reach.
[2020-01-15 20:42] VITALS: BP 147/78; PULSE 91; TEMP 99.1
[2020-01-15 23:48] VITALS: BP 156/88; PULSE 76; TEMP 98.8
[2020-01-16 03:37] VITALS: BP 166/91; PULSE 73; TEMP 98.2
--- NOTE | 2020-01-16 03:52 | NUR ---
Elevated BP 166/91. PRN apresoline given for SPB >160. Will monitor pt. Pt voiced no concerns or needs at this time. Call light within reach.
--- NOTE | 2020-01-16 06:13 | NUR ---
Pt made no complaints of pain or nausea on this shift. Meds adminsitered. Slept through the night. Call light within reach.
--- NOTE | 2020-01-16 06:39 | NUR ---
Report given to ANITRA Brannon.
[2020-01-16 07:20] VITALS: BP 165/94; PULSE 80; TEMP 98.2
[2020-01-16 07:44] LABS: INR 0.8 (0.8-3.0); PROTHROMBIN TIME 9.4 SECONDS (9.7-12.8)
--- NOTE | 2020-01-16 08:22 | NUR ---
Patient A&Ox3, asleep, but easily arousable. VSS. IV CDI, fluids infusing. Patient tolerating clear liquids. No further needs expressed from patient. Call light within reach
[2020-01-16 12:12] VITALS: BP 151/88; PULSE 88; TEMP 98.5
[2020-01-16 16:02] VITALS: BP 172/90; PULSE 88; TEMP 98.5
--- NOTE | 2020-01-16 18:10 | NUR ---
Patient had an uneventful day. Spent most of the day in bed, but was awake most of the day. A&Ox3. VSS. IV CDI, fluids infusing. Diet advanced, tolerating well. No further needs expressed from patient. Call light within reach. Call light within reach
[2020-01-16 19:54] VITALS: BP 154/82; PULSE 86; TEMP 98.9
--- NOTE | 2020-01-16 20:16 | NUR ---
Received report from ANITRA Brannon. alert and oriented x4. Pt sitting up in bed watching TV upon entry. NAD. Denies any pain or nausea. Meds administered. LH IV intact with fluids infusing, dressing CDI. States no needs or concern at this time. call light within reach.
[2020-01-16 23:39] VITALS: BP 152/70; PULSE 81; TEMP 98.4
[2020-01-17 03:44] VITALS: BP 141/73; PULSE 74; TEMP 98.2
--- NOTE | 2020-01-17 06:42 | NUR ---
Pt made no complaints on this shift. Needs attended too. Meds adminsitered as ordered. Call light within reach.
--- NOTE | 2020-01-17 06:44 | NUR ---
Report given to ANITRA Zamora.
[2020-01-17 07:10] LABS: BASO # 0.1 (0.0-0.2); BASO % 0.5 % (0.0-2.0); EOS # 0.1 (0.0-0.7); EOS % 1.1 % (0-4.0); GRAN # 8.6 (1.4-6.5); GRAN % 69.4 % (42.2-75.2); HEMATOCRIT 37.7 % (37.0-47.0); HEMOGLOBIN 11.8 g/dl (12.5-16.0); LYMPH # 2.4 (1.2-3.4); LYMPH % 19.2 % (20.0-51.0); MEAN CELL VOLUME 95 fl (80.0-100.0); MEAN CORPUSCULAR HEMOGLOBIN 30 pg (27.0-31.0); MEAN CORPUSCULAR HGB CONC 31 g/dl (33.0-37.0); MEAN PLATELET VOLUME 9.4 fl (7.4-10.4); MONO # 1.1 (0.1-0.6); MONO % 8.8 % (1.7-9.3); PLATELET COUNT 239 K/mm3 (130-400); RED BLOOD COUNT 3.96 M/mm3 (4.10-5.30); REDCELL DISTRIBUTION WIDTH-CV 15.6 % (11.5-14.5)
[2020-01-17 07:19] LABS: PROTHROMBIN TIME 10.7 SECONDS (9.7-12.8)
[2020-01-17 07:25] LABS: ALBUMIN 2.5 gm/dL (3.5-5.0); BILIRUBIN,TOTAL 0.3 mg/dL (0.0-1.0); CALCIUM 8.2 mg/dL (8.4-10.2); CREATININE, serum 1.56 (0.52-1.25)
[2020-01-17 07:34] VITALS: BP 140/69; PULSE 78; TEMP 97.9
--- NOTE | 2020-01-17 10:33 | NUR ---
REPORT RCVD FROM ANITRA MCCLAIN. PT IS IN BED, HAS NO C/O PAIN OR DISCOMFORT AT THIS TIME. WILL CONTINUE TO MONITOR. PT HAS CALL LIGHT, AND PHONE AT BEDSIDE. NO FURTHER CONCERNS.
[2020-01-17 11:47] VITALS: BP 177/79; PULSE 72; TEMP 98.1
--- NOTE | 2020-01-17 12:12 | NUR ---
First visit from the bellhop captain. No needs right now.
--- NOTE | 2020-01-17 16:14 | NUR ---
SW met with the patient to revisit the discharge plan. The patient plans to return home and has no concerns about going home. Will continue to monitor.
[2020-01-17 16:43] VITALS: BP 152/75; PULSE 84; TEMP 98.3
--- NOTE | 2020-01-17 19:24 | NUR ---
REPORT GIVEN TO ANITRA BETANCOURT.
[2020-01-17 19:42] VITALS: BP 132/79; PULSE 87; TEMP 98.9
--- NOTE | 2020-01-17 21:49 | NUR ---
Received report from ANITRA Pope. NAD. Resting comfortably in bed without c/o pain or nausea. Pt ate dinner without issue. Meds administered. INT to RFA intact, flushed, dressing CDI. Needs met at this time. Call light within reach.
[2020-01-17 23:23] VITALS: BP 153/80; PULSE 76; TEMP 98.2
[2020-01-18 03:58] VITALS: BP 147/65; PULSE 81; TEMP 97.9
[2020-01-18 05:19] LABS: URINE TOTAL VOLUME 1600 mL
--- NOTE | 2020-01-18 06:01 | NUR ---
12hour urine collection completed. Pt made no complaints of pain or nausea. Meds administered. call light within reach.
[2020-01-18 06:09] LABS: BASO % 0.3 % (0.0-2.0); EOS # 0.1 (0.0-0.7); EOS % 0.9 % (0-4.0); GRAN # 8.6 (1.4-6.5); GRAN % 72.9 % (42.2-75.2); HEMOGLOBIN 11.1 g/dl (12.5-16.0); LYMPH # 1.8 (1.2-3.4); LYMPH % 15.1 % (20.0-51.0); MEAN CELL VOLUME 94 fl (80.0-100.0); MEAN CORPUSCULAR HEMOGLOBIN 31 pg (27.0-31.0); MEAN CORPUSCULAR HGB CONC 33 g/dl (33.0-37.0); MEAN PLATELET VOLUME 9.9 fl (7.4-10.4); MONO # 1.1 (0.1-0.6); MONO % 9.6 % (1.7-9.3); PLATELET COUNT 219 K/mm3 (130-400); RED BLOOD COUNT 3.64 M/mm3 (4.10-5.30); REDCELL DISTRIBUTION WIDTH-CV 15.3 % (11.5-14.5)
[2020-01-18 06:11] LABS: HEMATOCRIT 34.1 % (37.0-47.0)
[2020-01-18 06:13] LABS: INR 1.1 (0.8-3.0); PROTHROMBIN TIME 12.7 SECONDS (9.7-12.8)
[2020-01-18 06:20] LABS: ALBUMIN 2.3 gm/dL (3.5-5.0); BILIRUBIN,TOTAL 0.2 mg/dL (0.0-1.0); CREATININE, serum 1.54 (0.52-1.25); POTASSIUM 3.6 mmol/L (3.4-5.0); TOTAL PROTEIN 4.7 gm/dL (6.4-8.2)
[2020-01-18 06:30] LABS: CREATININE, serum 1.54 (0.52-1.25); URINE CREATININE CLEARANCE 37.2 mL/min (88-128)
--- NOTE | 2020-01-18 06:55 | NUR ---
Report given to ANITRA Powell. and ANITRA Luciano.
[2020-01-18 08:12] VITALS: BP 152/84; PULSE 85; TEMP 98.6
--- NOTE | 2020-01-18 08:25 | NUR ---
Pt assessment completed. Pt alert and oriented x4. Pt denies pain at this time. INT to right forearm patent and free of complications. Pt denies any other needs at this time. Call light within reach. Will continue to monitor.
[2020-01-18] MEDS ORDERED: LEVAQUIN 5500 MG/TA1 PO (12:06)
[2020-01-18] MEDS ORDERED: FLAGYL500 MG PO (12:07)
[2020-01-18] MEDS ORDERED: TOPROL XL 25MG25 MG PO (12:08)
--- NOTE | 2020-01-18 12:52 | NUR ---
DICHARGE INSTRUCTIONS PROVIDED TO PT. ALL QUESTIONS ANSWERED. PT VERBALIZED UNDERSTANDING OF ALL DISCHARGE INSTRUCTIONS INCLUDING FOLLOW UP APPOINTMENTS AND MEDICATIONS THAT WERE SENT TO PHARMACY. INT TO RIGHT FOREARM DISCONTINUED. PT ESCORTED OUT VIA WHEELCHAIR BY AMBULATORY CARE NURSE WITH ALL PERSONAL BELONGINGS.
== END 2020-01-18 12:52 | disposition home or self-care (01) | DRG 392 ==
LOC: COL.ER 23:54 → MEDICAL 01-15 02:00
PROVIDERS: Emergency Medicine; ADMIT Internal Medicine Nephrology
DX: K57.92 Diverticulitis of intestine, part unspecified, without perforation or abscess without bleeding (principal); K52.9 Noninfective gastroenteritis and colitis, unspecified; E03.9 Hypothyroidism, unspecified; F32.9 Major depressive disorder, single episode, unspecified; K21.0 Gastro-esophageal reflux disease with esophagitis; E66.9 Obesity, unspecified; N18.3 Chronic kidney disease, stage 3 (moderate); E11.22 Type 2 diabetes mellitus with diabetic chronic kidney disease; F17.210 Nicotine dependence, cigarettes, uncomplicated; I12.9 Hypertensive chronic kidney disease with stage 1 through stage 4 chronic kidney disease, or unspecified chronic kidney disease; Z98.51 Tubal ligation status; Z90.49 Acquired absence of other specified parts of digestive tract; Z90.710 Acquired absence of both cervix and uterus; Z90.89 Acquired absence of other organs
CPT/HCPCS: J0360; J0780; J1170; J1650; J1815; J1956; J2550; J7030; J7507; J7512

== ENCOUNTER 2020-01-20 21:04 | Inpatient (IN) | payer BC ==
[~2020-01-20] VITALS: Ht 152.4 cm; Wt 54.5 kg
[~2020-01-20 21:04] MED LIST changes: +AMARYL 2MG T2 MG/TAB PO; +FLAGYL500 MG PO; +LEVAQUIN 5500 MG/TA1 PO; +TOPROL XL 25MG25 MG PO
[2020-01-20 21:56] LABS: HEMATOCRIT 40.6 % (37.0-47.0); MEAN CELL VOLUME 94 fl (80.0-100.0); MEAN CORPUSCULAR HEMOGLOBIN 30 pg (27.0-31.0); MEAN CORPUSCULAR HGB CONC 32 g/dl (33.0-37.0); MEAN PLATELET VOLUME 9.6 fl (7.4-10.4); PLATELET COUNT 270 K/mm3 (130-400); RED BLOOD COUNT 4.34 M/mm3 (4.10-5.30); REDCELL DISTRIBUTION WIDTH-CV 15.2 % (11.5-14.5)
[2020-01-20 22:02] LABS: INR 1.2 (0.8-3.0); PROTHROMBIN TIME 13.1 SECONDS (9.7-12.8)
[2020-01-20 22:11] LABS: ALANINE AMINOTRANSFERASE 52 U/L (4-34); ALBUMIN 3.1 gm/dL (3.5-5.0); ALKALINE PHOSPHATASE 159 U/L (50-136); ANION GAP 4 mmol/L (7-16); AST,SGOT 39 U/L (15-37); BAND 2 % (0-10); BILIRUBIN,TOTAL 0.3 mg/dL (0.0-1.0); BLOOD UREA NITROGEN 40 mg/dL (7-17); CALCIUM 8.6 mg/dL (8.4-10.2); CARBON DIOXIDE 26 mmol/L (22-30); CHLORIDE 101 mmol/L (98-107); CREATININE, serum 1.73 (0.52-1.25); GLUCOSE 291 mg/dL (74-106); LIPASE 168 U/L (23-300); LYMPHOCYTE 10 % (20.0-51.0); METAMYELOCYTE 1 % (0-0); NEUTROPHILS 78 % (42.0-75.2); POTASSIUM 4.9 mmol/L (3.4-5.0); SODIUM 131 mmol/L (137-145); TOTAL PROTEIN 5.8 gm/dL (6.4-8.2)
[2020-01-20 22:12] LABS: C-REACTIVE PROTEIN < 0.5 mg/dL (0.0-0.9); PLATELET ESTIMATE NORMAL (NORMAL)
[2020-01-20 22:13] LABS: ANISOCYTOSIS 1+; HYPOCHROMIA 1+
[2020-01-20 22:20] LABS: TROPONIN-I < 0.012 ng/mL (0.000-0.035)
[2020-01-21] VITALS (14 sets, daily range): BP systolic 109–156; BP diastolic 61–82; PULSE 64–98; TEMP 98–98.6
[2020-01-21 00:09] LABS: COLLECTION METHOD CLEAN CATCH
[2020-01-21 00:13] LABS: MUCOUS Present /lpf; PH 6 (5-8); SQUAMOUS EPITHELIAL 0-2 /hpf; URINE APPEARANCE Clear; URINE BACTERIA None Seen /hpf; URINE BILIRUBIN Negative (NEGATIVE); URINE BLOOD Negative (NEGATIVE); URINE COLOR Yellow; URINE GLUCOSE 3+ (NEGATIVE); URINE KETONE Negative (NEGATIVE); URINE LEUKOCYTE ESTERASE Negative (NEGATIVE); URINE NITRATE Negative (NEGATIVE); URINE PROTEIN(semi-quant) 3+ (NEGATIVE); URINE RBC 0-2 /hpf; URINE UROBILINOGEN Negative (NEGATIVE)
--- NOTE | 2020-01-21 04:08 | NUR ---
Patient arrived on the floor brought by PACU nurse. Patient was alert and oriented, her was on the floor waiting for her. Upper two lap sites covered with band aid clean, dry and intact. PACU nurse stated the lower lap sites a leaking " a little bit" so it was covered with an ABD pad. Upon assessment ABD pad as saturated with thin serosanguinous fluid. Small amount of fluid seeped out from under the band aid any time the ABD was moved. A second ABD was applied, it also soaked in a short time. Doubled over ABD and foam tape applied, this seemed to hold leak. Patient is tolerating ice chips with no complaints of nausea. No complaints of pain at this time.
[2020-01-21 07:39] LABS: HEMATOCRIT 37.6 % (37.0-47.0); HEMOGLOBIN 11.9 g/dl (12.5-16.0); MEAN CELL VOLUME 95 fl (80.0-100.0); MEAN CORPUSCULAR HEMOGLOBIN 30 pg (27.0-31.0); MEAN CORPUSCULAR HGB CONC 32 g/dl (33.0-37.0); MEAN PLATELET VOLUME 10.2 fl (7.4-10.4); PLATELET COUNT 288 K/mm3 (130-400); RED BLOOD COUNT 3.97 M/mm3 (4.10-5.30); REDCELL DISTRIBUTION WIDTH-CV 15.5 % (11.5-14.5)
--- NOTE | 2020-01-21 08:00 | NUR ---
Patient in bed resting. Alert and oriented x 3. Assessment complete. Lap sites x2 with bandaids. Lap x 1 with ABD and foam dressing. IV fluids infusing per orders. Denies pain at this time. Denies further needs at this time.
[2020-01-21 08:01] LABS: ALBUMIN 2.6 gm/dL (3.5-5.0); BILIRUBIN,TOTAL 0.2 mg/dL (0.0-1.0); CALCIUM 7.4 mg/dL (8.4-10.2); CREATININE, serum 1.5 (0.52-1.25); POTASSIUM 5.4 mmol/L (3.4-5.0); TOTAL PROTEIN 5.1 gm/dL (6.4-8.2)
[2020-01-21 09:43] LABS: LYMPHOCYTE 2 % (20.0-51.0); MYELOCYTE 2 % (0-0); NEUTROPHILS 96 % (42.0-75.2)
[2020-01-21 09:44] LABS: PLATELET ESTIMATE NORMAL (NORMAL); TOXIC GRANULATION PRESENT
--- NOTE | 2020-01-21 09:50 | NUR ---
Patient up to restroom, stand by assist with steady gait. Dressing to low transverse lap site changed, reapplied ABD and foam dressing due to continued serosanguinous drainage.
[2020-01-21 11:50] LABS: PATHOLOGY DIFF REVIEW OK
--- NOTE | 2020-01-21 15:11 | NUR ---
Filter Bed Placer met with patient to discuss discharge planning. Patient lives in [place] with her , River (ph#[phone]) and sees FLORENTINO Foster for primary care in [place]. Patient states she also sees Dr. Vieira for her kidneys. Patient obtains medications from [facility] in [place] with no difficulties. Patient does not have Advance Directives. Patient does not use any DME and reports independence with ADLS. Patient plans to return home upon discharge and hopes she can go home tomorrow. No additional needs at this time.
[2020-01-21] MEDS ORDERED: NORCO 325 MG-51 TAB PO (17:21)
[2020-01-21] MEDS ORDERED: COLACE 100100 MG/CAP PO (17:21)
--- NOTE | 2020-01-21 18:35 | NUR ---
Patient has done well throughout the day. Tolerating diet without difficulties. Independent in room. Lap site dressing changed multiple times throughout the day. Has remained CDI since dressing change at 1700. Continues to deny pain. Denies further needs at this time. Will report off to cloth bleaching range operator chief.
--- NOTE | 2020-01-21 20:50 | NUR ---
Pt. laying in bed at this time. Pt. is A&OX3, assessment complete. INT to rt. hand patent. Pt. denies pain. Abd. inicisions x3, dressings CDI. Pt. denies further needs, call light within reach.
[2020-01-22 03:55] VITALS: BP 151/68; PULSE 65; TEMP 97.9
--- NOTE | 2020-01-22 08:00 | NUR ---
Patient in bed resting. Alert and oriented x 3. Assessment complete. Lap sites x2 with bandaids are CDI. Lower lap site with gauze and tegaderm is CDI. Denies pain at this time. Denies further needs at this time.
[2020-01-22 08:51] LABS: HEMOGLOBIN 11.5 g/dl (12.5-16.0); MEAN CELL VOLUME 95 fl (80.0-100.0); MEAN CORPUSCULAR HEMOGLOBIN 30 pg (27.0-31.0); MEAN CORPUSCULAR HGB CONC 32 g/dl (33.0-37.0); MEAN PLATELET VOLUME 9.9 fl (7.4-10.4); PLATELET COUNT 268 K/mm3 (130-400); RED BLOOD COUNT 3.86 M/mm3 (4.10-5.30); REDCELL DISTRIBUTION WIDTH-CV 15.4 % (11.5-14.5)
[2020-01-22 08:54] LABS: HEMATOCRIT 36.5 % (37.0-47.0)
[2020-01-22 09:08] LABS: CALCIUM 7.9 mg/dL (8.4-10.2); CREATININE, serum 1.43 (0.52-1.25); POTASSIUM 4.4 mmol/L (3.4-5.0)
[2020-01-22 09:12] VITALS: BP 165/80; PULSE 71; TEMP 98.1
[2020-01-22 09:49] LABS: ANISOCYTOSIS 1+; BAND 2 % (0-10); EOSINOPHIL 1 % (0-4); HYPOCHROMIA 1+; LYMPHOCYTE 15 % (20.0-51.0); METAMYELOCYTE 1 % (0-0); NEUTROPHILS 73 % (42.0-75.2)
--- NOTE | 2020-01-22 12:23 | NUR ---
Discharge education provided to patient. Educated on signs and symptoms of infection and when to call provider. Educated on new medications and follow up appointment. Continues to deny pain. INT to right forarm discontinued, catheter tip intact. Denies further needs at this time. Patient ambulated out with spouse and staff.
--- NOTE | 2020-01-22 13:49 | NUR ---
Swim Instructor offered prayer and support with patient.
== END 2020-01-22 12:23 | disposition home or self-care (01) | DRG 337 ==
LOC: COL.ER 21:04 → SURG 01-21 02:05
PROVIDERS: Emergency Medicine; ADMIT Surgery
PROC: 0JN83ZZ Release Abdomen Subcutaneous Tissue and Fascia, Percutaneous Approach (ICD-10-PCS; 2020-01-21)
PROC: 0DN84ZZ Release Small Intestine, Percutaneous Endoscopic Approach (ICD-10-PCS; principal; 2020-01-21 00:45)
DX: K56.50 Intestinal adhesions [bands], unspecified as to partial versus complete obstruction (principal); I12.9 Hypertensive chronic kidney disease with stage 1 through stage 4 chronic kidney disease, or unspecified chronic kidney disease; N18.3 Chronic kidney disease, stage 3 (moderate); D63.1 Anemia in chronic kidney disease; K21.9 Gastro-esophageal reflux disease without esophagitis; F32.9 Major depressive disorder, single episode, unspecified; E03.9 Hypothyroidism, unspecified; F41.9 Anxiety disorder, unspecified; F17.210 Nicotine dependence, cigarettes, uncomplicated; E66.9 Obesity, unspecified; Z79.52 Long term (current) use of systemic steroids; Z79.82 Long term (current) use of aspirin; Z79.01 Long term (current) use of anticoagulants; Z88.6 Allergy status to analgesic agent; Z90.710 Acquired absence of both cervix and uterus
CPT/HCPCS: J0330; J0690; J1100; J1644; J1720; J2405; J2704; J3010; J7030; J7507; J7512

== ENCOUNTER 2020-04-25 21:49 | Emergency (ER) | payer BC ==
[~2020-04-25] VITALS: Ht 152.4 cm; Wt 52.3 kg
[~2020-04-25 21:49] MED LIST changes: +COLACE 100100 MG/CAP PO
[2020-04-25 22:06] VITALS: TEMP 97.2
[2020-04-25 23:11] LABS: BASO # 0.1 (0.0-0.2); BASO % 0.6 % (0.0-2.0); EOS # 0.1 (0.0-0.7); EOS % 0.6 % (0-4.0); GRAN # 10.8 (1.4-6.5); GRAN % 68.6 % (42.2-75.2); HEMATOCRIT 37.2 % (37.0-47.0); HEMOGLOBIN 11.9 g/dl (12.5-16.0); LYMPH # 3.1 (1.2-3.4); LYMPH % 19.6 % (20.0-51.0); MEAN CELL VOLUME 90 fl (80.0-100.0); MEAN CORPUSCULAR HEMOGLOBIN 29 pg (27.0-31.0); MEAN CORPUSCULAR HGB CONC 32 g/dl (33.0-37.0); MEAN PLATELET VOLUME 9.6 fl (7.4-10.4); MONO # 1.5 (0.1-0.6); MONO % 9.3 % (1.7-9.3); PLATELET COUNT 268 K/mm3 (130-400); RED BLOOD COUNT 4.12 M/mm3 (4.10-5.30); REDCELL DISTRIBUTION WIDTH-CV 14.8 % (11.5-14.5)
[2020-04-25 23:18] LABS: INR 3.5 (0.8-3.0); PROTHROMBIN TIME 39.9 SECONDS (9.7-12.8)
[2020-04-25 23:22] LABS: ALBUMIN 3.2 gm/dL (3.5-5.0); BILIRUBIN,TOTAL 0.3 mg/dL (0.0-1.0); CALCIUM 8.5 mg/dL (8.4-10.2); CREATININE, serum 2.13 (0.52-1.25); POTASSIUM 4.2 mmol/L (3.4-5.0); TOTAL PROTEIN 5.7 gm/dL (6.4-8.2)
[2020-04-26 00:46] VITALS: BP 140/89; PULSE 79
== END 2020-04-26 00:47 | disposition home or self-care (01) ==
LOC: COL.ER 21:49
PROVIDERS: Nurse Practitioner
DX: S80.11XA Contusion of right lower leg, initial encounter (principal); E11.22 Type 2 diabetes mellitus with diabetic chronic kidney disease; N18.9 Chronic kidney disease, unspecified; Z79.4 Long term (current) use of insulin; Z90.710 Acquired absence of both cervix and uterus; Z88.5 Allergy status to narcotic agent; Z79.01 Long term (current) use of anticoagulants; X58.XXXA Exposure to other specified factors, initial encounter

== ENCOUNTER 2021-01-30 07:34 | Observation (INO) | payer MEDICARE, BC ==
[~2021-01-30] VITALS: Ht 152.4 cm; Wt 54.5 kg
[2021-01-30 08:32] LABS: BASO # 0.1 (0.0-0.2); BASO % 0.4 % (0.0-2.0); EOS % 0.3 % (0-4.0); GRAN # 10.1 (1.4-6.5); GRAN % 83.3 % (42.2-75.2); HEMOGLOBIN 11.6 g/dl (12.5-16.0); LYMPH # 0.8 (1.2-3.4); LYMPH % 6.4 % (20.0-51.0); MEAN CELL VOLUME 90 fl (80.0-100.0); MEAN CORPUSCULAR HEMOGLOBIN 28 pg (27.0-31.0); MEAN CORPUSCULAR HGB CONC 31 g/dl (33.0-37.0); MEAN PLATELET VOLUME 8.9 fl (7.4-10.4); MONO # 1.1 (0.1-0.6); MONO % 8.6 % (1.7-9.3); PLATELET COUNT 336 K/mm3 (130-400); RED BLOOD COUNT 4.13 M/mm3 (4.10-5.30); REDCELL DISTRIBUTION WIDTH-CV 16.3 % (11.5-14.5)
[2021-01-30 08:34] LABS: PROTHROMBIN TIME 11.1 SECONDS (9.7-12.8)
[2021-01-30 08:37] LABS: PARTIAL THROMBOPLASTIN TIME 27.5 SECONDS (26.0-37.0)
[2021-01-30 09:04] LABS: COLLECTION METHOD CLEAN CATCH
[2021-01-30 09:11] LABS: MUCOUS Present /lpf; PH 5 (5-8); URINE APPEARANCE Hazy; URINE BACTERIA Rare /hpf; URINE BILIRUBIN Negative (NEGATIVE); URINE BLOOD 1+ (NEGATIVE); URINE COLOR Yellow; URINE GLUCOSE 3+ (NEGATIVE); URINE KETONE Negative (NEGATIVE); URINE LEUKOCYTE ESTERASE Negative (NEGATIVE); URINE NITRATE Negative (NEGATIVE); URINE PROTEIN(semi-quant) 3+ (NEGATIVE); URINE RBC 0-2 /hpf; URINE UROBILINOGEN Negative (NEGATIVE); URINE WBC 0-2 /hpf
[2021-01-30 09:13] LABS: CHLORIDE 104 mmol/L (98-107)
[2021-01-30 09:19] LABS: TRICYCLIC ANTIDEPRESS URINE NEGATIVE
[2021-01-30 09:24] LABS: ALCOHOL(ethanol),MEDICAL < 10 mg/dL; BLOOD UREA NITROGEN 21 mg/dL (7-17); GLUCOSE 40 mg/dL (74-106)
[2021-01-30 09:25] LABS: ALBUMIN 3.2 gm/dL (3.5-5.0); ANION GAP 4 mmol/L (7-16); AST,SGOT 23 U/L (15-37); BILIRUBIN,TOTAL 0.2 mg/dL (0.0-1.0); CALCIUM 9.1 mg/dL (8.4-10.2); CARBON DIOXIDE 27 mmol/L (22-30); CREATININE, serum 1.47 (0.52-1.25); POTASSIUM 3.5 mmol/L (3.4-5.0); SODIUM 135 mmol/L (137-145); TOTAL PROTEIN 6.2 gm/dL (6.4-8.2)
[2021-01-30 09:26] LABS: ALANINE AMINOTRANSFERASE 13 U/L (4-34); ALKALINE PHOSPHATASE 85 U/L (50-136); TROPONIN-I < 0.012 ng/mL (0.000-0.035)
[2021-01-30] MEDS ORDERED: TOPROL XL 50MG50 MG PO (19:34)
[2021-01-30] MEDS ORDERED: NORVASC 5MG5 MG/TAB PO ×2 (19:37→19:40)
[2021-01-30] MEDS ORDERED: FARXIGA10 PO (19:38)
[2021-01-30] MEDS ORDERED: CELLCEPT 5500 MG/TAB PO (19:39)
[2021-01-30] MEDS ORDERED: TOPROL XL 25MG25 MG PO (19:40)
--- NOTE | 2021-01-30 20:19 | NUR ---
PATIENT ARRIVED TO [facility] FROM ED ACCOMPANY BY NURSE TRACY. PATIENT ALERT AND ORIENTED X4. AMBULATING INDEPENDENTLY WITH STEADY GAIT. DENIES ANY PAIN AT THIS TIME. LUNG SOUND CLEAR YARITZA. ABDOMEN SOFT, BSX4 PRESENTTO ALL QUADRANTS. ON IVF DS1/5 NS@ 125ML/HR. WILL CONTINUE TO MONITOR.
[2021-01-30 20:30] VITALS: BP 135/60; PULSE 60; TEMP 97.4
[2021-01-30 21:39] VITALS: BP 153/73; PULSE 72; TEMP 99.2
--- NOTE | 2021-01-30 22:06 | NUR ---
PATIENT BLOOD SUGAR 50 12.5 MG OF D50 GIVEN ORDERED. PA HOSPITALIST SRIDEVI MADE AWARE. IVF D51/2NS@ 100ML/HR INFUSING. DIET CHANGE TO MECHANICAL SOFT. ORANGE JUICE AND TURKEY SANDWISH GIVEN. WILL CONTINUE TO MONITOR.
[2021-01-31 00:58] VITALS: BP 131/62; PULSE 76; TEMP 98.5
[2021-01-31 04:26] VITALS: BP 165/65; PULSE 58; TEMP 98.9
[2021-01-31 06:47] LABS: HEMATOCRIT 37.7 % (37.0-47.0); HEMOGLOBIN 11.9 g/dl (12.5-16.0); MEAN CELL VOLUME 89 fl (80.0-100.0); MEAN CORPUSCULAR HEMOGLOBIN 28 pg (27.0-31.0); MEAN CORPUSCULAR HGB CONC 32 g/dl (33.0-37.0); MEAN PLATELET VOLUME 9.2 fl (7.4-10.4); PLATELET COUNT 379 K/mm3 (130-400); RED BLOOD COUNT 4.22 M/mm3 (4.10-5.30); REDCELL DISTRIBUTION WIDTH-CV 16.7 % (11.5-14.5)
[2021-01-31 07:00] LABS: CALCIUM 8.5 mg/dL (8.4-10.2); CREATININE, serum 1.62 (0.52-1.25)
[2021-01-31 07:47] VITALS: BP 133/52; PULSE 77; TEMP 98.9
[2021-01-31 08:05] LABS: ANISOCYTOSIS 1+; EOSINOPHIL 2 % (0-4); LYMPHOCYTE 26 % (20.0-51.0); NEUTROPHILS 66 % (42.0-75.2); PLATELET ESTIMATE NORMAL (NORMAL)
[2021-01-31 08:08] LABS: HYPOCHROMIA 1+
[2021-01-31 11:38] VITALS: BP 157/75; PULSE 73; TEMP 98.9
--- NOTE | 2021-01-31 16:39 | NUR ---
Bread Slicer Machine met with the patient to complete intake. The patient lives in [place] with her River. The patient denies DME use and is independent. The patient's PCP is Dr. Maldonado Henderson and patient receives medications from [facility]. The patient does not have advanced directives in the EMR but states they are complete and designate River. The patient plans to return home at discharge with no anticipated needs. *Discharge disposition: Home with spouse, River
--- NOTE | 2021-01-31 18:47 | NUR ---
REPORT RECEIVED FROM OUTGOING NURSE VENANCIO.
[2021-01-31 19:07] VITALS: BP 140/55; PULSE 69; TEMP 97.9
--- NOTE | 2021-01-31 19:40 | NUR ---
PATIENT IN BED RESTING WATCHING TELEVISION. ALERT AND ORIENTED X4. DENIES PAIN OR NAUSEA/VOMITING. CONTINUE ON IVF D51/4NS@ 1-00ML/HR. INDEPENDENT IN ROOM, GAIT STEADY. LAST BLOOD SUGAR 195. WILL CONTINUE TO MONITOR.
[2021-01-31 23:22] VITALS: BP 125/48; PULSE 71; TEMP 98.1
[2021-02-01 03:31] VITALS: BP 132/57; PULSE 65; TEMP 98
[2021-02-01 06:33] LABS: CHOLESTEROL RISK RATIO 3.3
[2021-02-01 08:11] VITALS: BP 126/51; PULSE 72; TEMP 98.5
--- NOTE | 2021-02-01 09:46 | NUR ---
Dba attended clinial rounds with the team. The patient's spouse, River present. PT/OT recommend home with spouse. *Discharge disposition: Home with spouse
[2021-02-01] MEDS ORDERED: PLAVIX 75MG TAB75 MG PO (09:58)
[2021-02-01] MEDS ORDERED: AMOXICILLIN 8751 TAB PO (10:00)
[2021-02-01] MEDS ORDERED: ASPIRIN 81M81 MG/TA2 PO (10:01)
[2021-02-01] MEDS ORDERED: COZAAR 25MG25 MG/TAB PO (10:01)
--- NOTE | 2021-02-01 10:13 | NUR ---
Initial visit; Patient thanked Sail Repairer for offering prayer and God's blessings this morning. Sail Repairer will follow up.
--- NOTE | 2021-02-01 12:13 | NUR ---
DISCHARGE EDUCATION PROVIDED ON NEW DR. APPTS, CHANGES TO MEDICATIONS, SIDE EFFECTS OF MEDICATIONS. IV REMOVED, NO OTHER NEEDS AT THIS TIME.
== END 2021-02-01 12:15 | disposition home or self-care (01) ==
LOC: COL.ER 07:34 → MEDICAL 16:55 → EDBEDREQ 17:48 → MEDICAL 02-01 12:15
PROVIDERS: Emergency Medicine; Student in an Organized Health Care Education/Training Program; ADMIT Internal Medicine
DX: E11.649 Type 2 diabetes mellitus with hypoglycemia without coma (principal); E11.22 Type 2 diabetes mellitus with diabetic chronic kidney disease; I12.9 Hypertensive chronic kidney disease with stage 1 through stage 4 chronic kidney disease, or unspecified chronic kidney disease; N18.30 Chronic kidney disease, stage 3 unspecified; M62.81 Muscle weakness (generalized); D63.1 Anemia in chronic kidney disease; E03.9 Hypothyroidism, unspecified; M27.2 Inflammatory conditions of jaws; E87.6 Hypokalemia; F32.9 Major depressive disorder, single episode, unspecified; I34.0 Nonrheumatic mitral (valve) insufficiency; E78.2 Mixed hyperlipidemia; R20.0 Anesthesia of skin; F17.210 Nicotine dependence, cigarettes, uncomplicated; Z79.84 Long term (current) use of oral hypoglycemic drugs; Z79.82 Long term (current) use of aspirin; Z79.890 Hormone replacement therapy; Z79.899 Other long term (current) drug therapy; Z79.01 Long term (current) use of anticoagulants; Z79.52 Long term (current) use of systemic steroids; W06.XXXA Fall from bed, initial encounter; Y92.003 Bedroom of unspecified non-institutional (private) residence as the place of occurrence of the external cause
CPT/HCPCS: 99223-AI; G0378; J0295; J1644; J7512; J7517; Q9967

== ENCOUNTER 2022-03-29 11:09 | Inpatient (IN) | payer MEDICARE, BC ==
[~2022-03-29] VITALS: Ht 152.4 cm; Wt 52.9 kg
[~2022-03-29 11:09] MED LIST changes: +ASPIRIN 81M81 MG/TA2 PO; +CELLCEPT 5500 MG/TAB PO; +COZAAR 25MG25 MG/TAB PO; +FARXIGA10 PO; +PLAVIX 75MG TAB75 MG PO; +TOPROL XL 50MG50 MG PO
[2022-03-29 12:34] LABS: BASO # 0.1 K/mm3 (0.0-0.2); BASO % 0.7 % (0.0-2.0); EOS % 0.2 % (0.0-4.0); GRAN # 10.4 K/mm3 (1.4-6.5); GRAN % 85.9 % (42.2-75.2); HEMATOCRIT 41.3 % (37.0-47.0); HEMOGLOBIN 12.9 g/dl (12.5-16.0); LYMPH # 0.8 K/mm3 (1.2-3.4); LYMPH % 6.7 % (20.0-51.0); MEAN CELL VOLUME 88 fl (80.0-100.0); MEAN CORPUSCULAR HEMOGLOBIN 27 pg (27-31); MEAN CORPUSCULAR HGB CONC 31 g/dl (33.0-37.0); MEAN PLATELET VOLUME 10.1 fl (7.4-10.4); MONO # 0.7 K/mm3 (0.1-0.6); MONO % 6.1 % (1.7-9.3); PLATELET COUNT 336 K/mm3 (130-400); REDCELL DISTRIBUTION WIDTH-CV 16.4 % (11.5-14.5)
[2022-03-29 12:56] LABS: ALBUMIN 3.4 gm/dL (3.4-4.8); BILIRUBIN,TOTAL 0.4 mg/dL (0.2-1.2); CALCIUM 9.5 mg/dL (8.4-10.2); CREATININE, serum 1.47 mg/dL (0.57-1.11); POTASSIUM 3.7 mmol/L (3.5-4.5); TOTAL PROTEIN 6.6 gm/dL (6.2-8.1)
[2022-03-29 20:00] VITALS: BP 206/77; PULSE 84; TEMP 100.2
--- NOTE | 2022-03-29 20:20 | NUR ---
Pt's VS were assessed at 2015. Pt also reported feeling some nausea and abdominal pain. Pt's BP was assessed x3 and the best BP was 206/77. This nurse notified FLORENTINO Marino. The following order was placed: 1. Hydralazine 10 mg IV once now Order was followed per orders. Pt did have an emesis episode shortly following. A moderate amount of red-colored vomit was noted. Pt stated she recently drank cranberry juice. IV zofran, PO tylenol for temp of 100.2, and PO norco for pain were administered with 2100 medications. Pt was re-assessed and reports relief of pain and nausea. No other emesis episodes recorded at this time. No other changes at this time.
--- NOTE | 2022-03-30 00:33 | NUR ---
Pt alert and oriented, follows commands. Denying pain/nausea at this time, but did have an nausea/vomiting and pain episode around 1999 (see previous note). Prn zofran and norco administered per orders with relief reported. VS stable. Pt had temp of 100.2, prn tylenol administered. On room air. Hydralazine administered for BP of 200/73, provider notified. Shift assessment performed. Medications administered and education provided. IV fluids continuing per orders. No significant skin issues noted. Fall precautions in place. Bed low and locked, call barron within reach. No other concerns at this time.
[2022-03-30 00:52] VITALS: BP 122/55; PULSE 82; TEMP 99
[2022-03-30 05:03] VITALS: BP 120/47; PULSE 83; TEMP 99.1
--- NOTE | 2022-03-30 05:26 | NUR ---
No adverse events overnight. No other emesis/nausea episodes after the episode at 1999. Pt denies nausea and pain this morning, does not request medication at this time. Pt does not report abdominal pain at this time. VS stable. On room air. Temperature max overnight 100.2. BP has decreased after ordered apresoline administration. IV fluids continue per orders. Pt tolerating clear liquids this morning. Bed low and locked, call barron within reach. No new concerns at this time.
[2022-03-30 06:09] LABS: BASO # 0.1 K/mm3 (0.0-0.2); BASO % 0.8 % (0.0-2.0); EOS # 0.2 K/mm3 (0.0-0.7); EOS % 1.8 % (0.0-4.0); GRAN # 6.4 K/mm3 (1.4-6.5); HEMOGLOBIN 11.2 g/dl (12.5-16.0); LYMPH # 2.1 K/mm3 (1.2-3.4); LYMPH % 20.9 % (20.0-51.0); MEAN CELL VOLUME 89 fl (80.0-100.0); MEAN CORPUSCULAR HEMOGLOBIN 27 pg (27-31); MEAN CORPUSCULAR HGB CONC 30 g/dl (33.0-37.0); MEAN PLATELET VOLUME 9.8 fl (7.4-10.4); MONO # 1.1 K/mm3 (0.1-0.6); PLATELET COUNT 336 K/mm3 (130-400); RED BLOOD COUNT 4.16 M/mm3 (4.10-5.30); REDCELL DISTRIBUTION WIDTH-CV 16.5 % (11.5-14.5)
[2022-03-30 06:31] LABS: ALBUMIN 2.7 gm/dL (3.4-4.8); BILIRUBIN,TOTAL 0.3 mg/dL (0.2-1.2); CREATININE, serum 1.29 mg/dL (0.57-1.11); MAGNESIUM 1.7 mg/dL (1.6-2.6); TOTAL PROTEIN 5.3 gm/dL (6.2-8.1)
--- NOTE | 2022-03-30 07:40 | NUR ---
VSS, PT A&O X4, PT ABLE TO MAKE NEEDS KNOWN, PT DENIES PAIN/NAUSEA CURRENTLY, FALL PRECAUTIONS IN PLACE
[2022-03-30 07:41] VITALS: BP 152/75; PULSE 85; TEMP 99.5
[2022-03-30 11:20] VITALS: BP 176/71; PULSE 73; TEMP 98.5
--- NOTE | 2022-03-30 14:43 | NUR ---
SW met with pt to complete intake. Pt lives at home with his her , [place] [phone]. Pt is independent on all ADLs and sometimes needs assistance with ambulatory. Pt has wheelchair. PCP is Maldonado Henderson and gets medications from [facility]. Sw to await further recommendations and follow up. DC: home
--- NOTE | 2022-03-30 15:01 | NUR ---
PHYS NOTIFIED OF ELEVATED BP, NEW ORDERS TO COME
[2022-03-30 15:14] VITALS: BP 171/83; PULSE 81; TEMP 99
[2022-03-30 15:30] LABS: COLLECTION METHOD CLEAN CATCH
[2022-03-30 15:35] LABS: URINE APPEARANCE Clear (CLEAR/HAZY); URINE BLOOD TRACE-INTACT (NEGATIVE); URINE COLOR Yellow (YELLOW); URINE GLUCOSE 2+ (NEGATIVE); URINE KETONE Negative (NEGATIVE); URINE NITRATE Negative (NEGATIVE); URINE PROTEIN(semi-quant) 3+ (NEGATIVE); URINE UROBILINOGEN 0.2 E.U/dL (0.2-1.0)
[2022-03-30 15:39] LABS: SQUAMOUS EPITHELIAL None Seen /hpf (0-10); URINE BACTERIA Rare /hpf (NONE SEEN); URINE RBC 0-2 /hpf (0-2)
[2022-03-30 19:42] VITALS: BP 148/78; PULSE 87; TEMP 99.2
[2022-03-31] VITALS: BP 124/58; PULSE 78; TEMP 98.4
--- NOTE | 2022-03-31 01:44 | NUR ---
Pt alert and oriented, follows commands. Denies pain or nausea at this time. No vomiting noted this evening. Pt tolerating PO diet and medications. No reports of abdominal pain this evening so far. VS stable. On room air. Activity as tolerated. Shift assessment performed. Medications administered per orders and education provided. Small, scattered bruises noted on the BLE. Bed low and locked, call barron within reach. No new concerns at this time.
[2022-03-31 03:35] VITALS: BP 132/66; PULSE 72; TEMP 98
--- NOTE | 2022-03-31 04:48 | NUR ---
No adverse events overnight. No vomiting overnight. Pt denies nausea or abdominal pain at this time. Tolerating PO. VS stable. On room air. Bed low and locked, call barron within reach. No new concerns at this time.
[2022-03-31 06:59] LABS: ALBUMIN 2.6 gm/dL (3.4-4.8); BILIRUBIN,TOTAL 0.2 mg/dL (0.2-1.2); CALCIUM 8.1 mg/dL (8.4-10.2); CREATININE, serum 1.34 mg/dL (0.57-1.11); MAGNESIUM 1.8 mg/dL (1.6-2.6); POTASSIUM 3.8 mmol/L (3.5-4.5); TOTAL PROTEIN 5.2 gm/dL (6.2-8.1)
[2022-03-31 07:28] VITALS: BP 145/66; PULSE 66; TEMP 99.3
[2022-03-31] MEDS ORDERED: NORCO 325 MG-51 TAB PO (08:50)
[2022-03-31] MEDS ORDERED: PREDNISONE 5MG5 MG PO (08:51)
[2022-03-31] MEDS ORDERED: ZOFRAN ODT4 MG PO (08:52)
--- NOTE | 2022-03-31 09:35 | NUR ---
VSS, PT A&O X4, PT ABLE TO MAKE NEEDS KNOWN, PT UP TO SIDE OF BED FOR BREAKFAST, PT REPORTS SOFT TO DIARRHEA STOOL THIS AM, GI PANEL NEGATIVE, FALL PRECAUTIONS IN PLACE, CALL LIGHT IN REACH
--- NOTE | 2022-03-31 09:41 | NUR ---
VSS, PT A&O X4, PT ABLE TO MAKE NEEDS KNOWN, PT TOLERATES PO INTAKE, FALL PRECAUTIONS IN PLACE, PT DENIES PAIN, CALL LIGHT IN REACH
--- NOTE | 2022-03-31 10:45 | NUR ---
PT DISMISSED TO HOME TODAY, PT EDUCATED ON DISMISSAL INSTRUCTIONS/MEDICATION INSTRUCTIONS/FOLLOW UP INSTRUCTIONS, IV DC'D, PT AMBULATED TO EXIT, NO FURTHER CONCERNS
== END 2022-03-31 10:48 | disposition home or self-care (01) | DRG 446 ==
LOC: COL.ER 11:09 → MEDICAL 16:14 → SURG 17:18 → MEDICAL 03-31 10:48
PROVIDERS: Emergency Medicine; ADMIT Internal Medicine
DX: K83.8 Other specified diseases of biliary tract (principal); K82.8 Other specified diseases of gallbladder; E78.5 Hyperlipidemia, unspecified; F32.A Depression, unspecified; E03.9 Hypothyroidism, unspecified; F17.210 Nicotine dependence, cigarettes, uncomplicated; I12.9 Hypertensive chronic kidney disease with stage 1 through stage 4 chronic kidney disease, or unspecified chronic kidney disease; E11.22 Type 2 diabetes mellitus with diabetic chronic kidney disease; K21.9 Gastro-esophageal reflux disease without esophagitis; E87.6 Hypokalemia; N18.30 Chronic kidney disease, stage 3 unspecified; K59.00 Constipation, unspecified; Z79.01 Long term (current) use of anticoagulants; Z98.51 Tubal ligation status; Z90.710 Acquired absence of both cervix and uterus; Z90.49 Acquired absence of other specified parts of digestive tract; Z88.5 Allergy status to narcotic agent; Z86.73 Personal history of transient ischemic attack (TIA), and cerebral infarction without residual deficits; Z79.890 Hormone replacement therapy; Z79.82 Long term (current) use of aspirin
CPT/HCPCS: J0360; J1644; J1815; J2405; J3010; J7030; J7512; J7517; Q9967

== ENCOUNTER → 2022-04-08 | Outpatient (CLI) | payer MEDICARE, BC ==
[~2022-04-08] MED LIST changes: +ZOFRAN ODT4 MG PO
== END ==
LOC: COL.RAD 08:23
DX: K80.50 Calculus of bile duct without cholangitis or cholecystitis without obstruction (principal); K83.9 Disease of biliary tract, unspecified